=== PATIENT | female | born 1950 | race Caucasian/White ===

== ENCOUNTER → 2016-08-09 | Outpatient (CLI) | payer MEDICARE ==
--- NOTE | 2016-08-09 15:30 | CT ---
EXAMINATION TYPE: CT sinus wo con DATE OF EXAM: 08/09/2016 2:16 PM COMPARISON: NONE HISTORY: Sinusitis CT DLP: 588 mGycm Automated exposure control for dose reduction was used. Helical imaging through the sinuses FINDINGS: No air-fluid level to suggest acute sinusitis. The orbits show a symmetric appearance. Postop changes are present in the maxillary sinus medial davila. Is a mildly deviated nasal septum. No significant m ucosal disease. Temporomandibular joints are intact. There is no erosion of the scutum. No thickening of the tympanic membranes. Auditory ossicles show symmetric appearance. IMPRESSION: POSTOP CHANGE.
== END | disposition home or self-care (01) ==
LOC: RADCTMAIN 13:54
PROVIDERS: ATTEND Otolaryngology
DX: J01.90 Acute sinusitis, unspecified (principal); Z98.890 Other specified postprocedural states
CPT/HCPCS: 70486

== ENCOUNTER → 2017-03-15 | Outpatient (CLI) | payer MEDICARE ==
[2017-03-15 13:30] LABS: Appearance,Urine Clear (Clear); Bilirubin,Urine Negative (Negative); Glucose,Urine (UA) Negative (Negative); Ketones,Urine Negative (Negative); Leukocyte Esterase,Urine Negative (Negative); Nitrite,Urine Negative (Negative); PH, Urine 6.5 (5.0-8.0); Protein,Urine Negative (Negative); Specific Gravity,Urine 1.001 (1.001-1.035); UA Billing (MACRO vs. MICRO) CHEM; Urobilinogen,Urine <2.0 mg/dL (<2.0)
== END | disposition home or self-care (01) ==
LOC: LABWHC1 12:15
PROVIDERS: ATTEND Internal Medicine
DX: E78.00 Pure hypercholesterolemia, unspecified (principal); E03.9 Hypothyroidism, unspecified
CPT/HCPCS: 36415; 80051; 80061; 81003; 83735

== ENCOUNTER 2018-04-09 06:39 | Day surgery (SDC) | payer MEDICARE ==
[2018-04-04 16:35] VITALS: BMI 20.1
[~2018-04-09 06:39] MED LIST: CLINDAMYCIN 900 MG in DEXTROSE 5% IN WATER 50 ML IVPB ONE; SODIUM CHLORIDE 0.9% 1,000 ML IV SCH
[2018-04-09 07:17] VITALS: RESP 16; TEMP 98.1
[2018-04-09] MEDS ORDERED: SODIUM CHLORIDE 0.9% 500 ML IV ONE (07:18)
[2018-04-09] MEDS ORDERED: fentaNYL (PF) 50 MCG/ML 2 ML AMP ONE (07:49)
[2018-04-09] MEDS ORDERED: MIDAZOLAM 2 MG/2 ML VIAL ONE ×3 (07:49→09:51)
[2018-04-09] MEDS ORDERED: BENZOCAINE SPRAY 1 CAN MUCOUS MEM ONE (08:03)
[2018-04-09] MEDS ORDERED: fentaNYL (PF) 50 MCG/ML 2 ML AMP IV ONE (08:10)
[2018-04-09] MEDS ORDERED: MIDAZOLAM 2 MG/2 ML VIAL IV ONE ×2 (08:11→09:52)
[2018-04-09] MEDS ORDERED: DICYCLOMINE 10 MG CAP PO PRN (08:25)
[2018-04-09] MEDS ORDERED: DIAZEPAM 5 MG TAB PO PRN (08:25)
[2018-04-09] MEDS ORDERED: FAMOTIDINE 20 MG TAB PO PRN (08:25)
[2018-04-09] MEDS ORDERED: SODIUM CHLORIDE 0.9% 1,000 ML IV SCH (08:30)
[2018-04-09] MEDS ORDERED: ASPIRIN 81 MG PO SCH (09:00)
[2018-04-09] MEDS ORDERED: LEVOTHYROXINE 75 MCG TAB PO SCH (09:00)
[2018-04-09] MEDS ORDERED: NON-FORMULARY DRUG (Potassium Chloride [Klor-Con 10] 10 MEQ) PO SCH (09:00)
[2018-04-09] MEDS ORDERED: DOCUSATE 100 MG CAP PO SCH (09:00)
[2018-04-09] MEDS ORDERED: ATORVASTATIN 40 MG TAB PO SCH (09:00)
[2018-04-09] MEDS ORDERED: IV FLUID CONTINUATION 450 ML IV ONE (09:50)
--- NOTE | 2018-04-09 09:58 | ECHOT ---
TRANSESOPHAGEAL ECHOCARDIOGRAM INDICATION: Evaluation of left atrial appendage. PROCEDURE: After explaining the procedure to the patient, its risks and the complications, her blood pressure, heart rate, O2 saturation was monitored. The throat was sprayed with Cetacaine. She received 2 mg intravenous Versed, 50 mcg intravenous fentanyl. The probe was introduced into the esophagus without difficulty. Images were obtained. Following that, the probe was removed. There was no immediate complication. FINDINGS: The left atrial size is normal. Left atrial appendage is normal. Left ventricular size and systolic function are normal. The aortic valve, mitral valve, tricuspid valve are normal. Descending thoracic aorta appears to be normal. Contrast bubble study revealed no shunting across the interatrial septum. Doppler pulse obtained, revealed mild mitral and tricuspid as well as aortic regurgitation. There was no shunting by color Doppler study. CONCLUSION: 1. Normal left ventricular size and systolic function. 2. Normal left atrial appendage size and normal appearance left atrial appendage. 3. Normal appearance of the aortic and mitral valve. 4. Mild mitral, aortic and tricuspid regurgitation. 5. No shunting by color Doppler study or contrast bubble study. MMODL / IJN: [id number] /
--- NOTE | 2018-04-09 10:11 | P.PCN ---
Preoperative Diagnosis: Loop monitor implant Primary physicians: Ermias Romero Yarn Twister: Dr. Crandall Indication: Cryptogenic stroke pontine embolic stroke, history of palpitations deemed as panic attacks, no intracardiac mass or thrombus on JENNIFER Patient was brought to the EP lab in a fasting state. Written informed consent was obtained prior to the procedure. The left pectoral area was prepped and draped per protocol. Intravenous antibiotic was administered preoperatively. A subcutaneous Loop monitor was implanted successfully and the wound was closed per protocol. The device was programmed to detect significant sakina- arrhythmic and tachy-arrhythmic events, per protocol. Device and programming details: Detection of atrial fibrillation Patient underwent EP procedure under conscious sedation/moderate sedation, monitoring of the level of consciousness and physiologic parameters including but not limited to vital signs and oxygenation. Patient tolerated the procedure well without any acute complications. Start time: 957 Stop time: 1007 Disposition: same day
[2018-04-09 10:55] VITALS: BP 140/57; PULSE 82
== END 2018-04-09 11:06 | disposition home or self-care (01) ==
LOC: CATHCVL 06:39
PROVIDERS: ATTEND Internal Medicine Interventional Cardiology
DX: I69.354 Hemiplegia and hemiparesis following cerebral infarction affecting left non-dominant side (principal); I63.19 Cerebral infarction due to embolism of other precerebral artery; I48.91 Unspecified atrial fibrillation; E78.5 Hyperlipidemia, unspecified; I08.3 Combined rheumatic disorders of mitral, aortic and tricuspid valves; Z79.890 Hormone replacement therapy; Z79.899 Other long term (current) drug therapy; Z88.3 Allergy status to other anti-infective agents; Z79.82 Long term (current) use of aspirin; Z87.891 Personal history of nicotine dependence
CPT/HCPCS: 93312; 93320; 93325; 33282; C1764; J2250; J3010

== ENCOUNTER → 2019-04-01 | Outpatient (CLI) | payer MEDICARE ==
--- NOTE | 2019-04-01 14:55 | CT ---
EXAMINATION TYPE: CT abdomen pelvis wo con DATE OF EXAM: 04/01/2019 COMPARISON: 04/05/2011 HISTORY: 68-year-old female Left flank pain and recurrent UTIs. CT DLP: 484 mGycm. Automated exposure control for dose reduction was used. TECHNIQUE: Contiguous axial scanning of the abdomen and pelvis without IV contrast. Coronal and sagit kerwin reconstructions performed. FINDINGS: LUNG BASES: Trace pericardial thickening/fluid. Heart normal size. Strandy inferior lingular atelecta sis. No pleural effusion. Tiny hiatal hernia. LIVER/GB: Gallstones measuring up to 1.2 cm. Otherwise, noncontrast appearance shows no gross abnorma lity. 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 PANCREAS: No significant abnormality allowing for noncontrast technique. SPLEEN: No significant abnormality allowing for noncontrast technique. ADRENALS: No significant abnormality is seen. KIDNEYS: Punctate 2 mm calculus medial left kidney. No hydronephrosis on either side. BOWEL: Normal appendix. Scattered mild stool. Redundant sigmoid colon with diverticulosis. No elias lonic inflammatory change. OTHER: No mesenteric or retroperitoneal lymphadenopathy. PELVIS: Bladder is urine distended. Bulging laxity of the levator ani musculature at the base of the bladder projecting at or just below the pubococcygeal line. No abnormal fluid collection in the pelvi s or pelvic lymphadenopathy. Uterus surgically absent. Neither ovary clearly seen. BONES: Diffuse osteopenia. Degenerative changes of the hips. Trace grade 1 anterolisthesis L3-L4. IMPRESSION: 1. Punctate 2 mm left renal calculus. No hydronephrosis on either side. 2. Sigmoid diverticulosis without acute diverticulitis. 3. Cholelithiasis. 4. Tiny hiatal hernia.
== END | disposition home or self-care (01) ==
LOC: RADCTMAIN 12:14
PROVIDERS: ATTEND Urology
DX: N20.0 Calculus of kidney (principal); K57.30 Diverticulosis of large intestine without perforation or abscess without bleeding; K80.20 Calculus of gallbladder without cholecystitis without obstruction; K44.9 Diaphragmatic hernia without obstruction or gangrene; N39.0 Urinary tract infection, site not specified; Z88.1 Allergy status to other antibiotic agents
CPT/HCPCS: 74176

== ENCOUNTER 2020-05-13 10:04 | Day surgery (SDC) | payer MEDICARE ==
[2020-05-11 16:28] VITALS: BMI 23.4
[~2020-05-13 10:04] MED LIST changes: -CLINDAMYCIN 900 MG in DEXTROSE 5% IN WATER 50 ML IVPB ONE; +LACTATED RINGERS 1,000 ML IV SCH; +LIDOCAINE 1% INJ 10MG/ML (20 ML MDV) ONE; +ceFAZolin 1,000 MG in SODIUM CHLORIDE 0.9% IRRIGATIO 250 ML IRRIGATION ONE
[2020-05-13] MEDS ORDERED: SODIUM CHLORIDE 0.9% 500 ML 500 ML IV ONE (10:18)
[2020-05-13 10:39] LABS: Basophils # (A) 0.1 k/uL (0-0.2); Basophils % (A) 1 %; Eosinophils # (A) 0.1 k/uL (0-0.7); Eosinophils % (A) 3 %; HCT 40.6 % (34.0-46.0); HGB 13.5 gm/dL (11.4-16.0); Lymphocytes # (A) 1.9 k/uL (1.0-4.8); Lymphocytes % (A) 34 %; MCH 30.6 pg (25.0-35.0); MCHC 33.2 g/dL (31.0-37.0); MCV 92.1 fL (80.0-100.0); Mean Platelet Volume 7.9; Monocytes # (A) 0.3 k/uL (0-1.0); Monocytes % (A) 6 %; Neutrophils % (A) 55 %; Platelet Count 186 k/uL (150-450); RDW 12.5 % (11.5-15.5); WBC 5.5 k/uL (3.8-10.6)
[2020-05-13 10:51] LABS: Calcium 9.2 mg/dL (8.4-10.2); Potassium 3.4 mmol/L (3.5-5.1)
[2020-05-13] MEDS ORDERED: MIDAZOLAM 2 MG/2 ML VIAL ONE (10:54)
[2020-05-13] MEDS ORDERED: HYDROmorphone (PF) 1 MG/ML ONE (10:54)
[2020-05-13] MEDS ORDERED: PROPOFOL 10 MG/ML 20 ML VIAL IV ONE (10:54)
[2020-05-13] MEDS ORDERED: fentaNYL (PF) 50 MCG/ML 2 ML AMP ONE (10:54)
[2020-05-13] MEDS ORDERED: diphenhydrAMINE 50 MG/ML 1 ML VIAL ONE (10:54)
[2020-05-13] MEDS ORDERED: SODIUM CHLORIDE 0.9% 900 ML IV ONE (10:58)
[2020-05-13] MEDS ORDERED: IOPAMIDOL-250 50ML BTL IV ONE (11:13)
[2020-05-13] MEDS ORDERED: LIDOCAINE 1% INJ 10MG/ML (20 ML MDV) SQ ONE (11:57)
[2020-05-13] MEDS: LIDOCAINE 1% INJ 10MG/ML (20 ML MDV) SQ ONE ×2 (12:12→13:41)
[2020-05-13] MEDS ORDERED: ACETAMINOPHEN IV (For NPO) 1,000 MG in EMPTY BAG 1 BAG IVPB ONE (13:24)
[2020-05-13] MEDS ORDERED: ACETAMINOPHEN TAB 325 MG TAB PO PRN (13:24)
--- NOTE | 2020-05-13 13:32 | P.PRLE ---
RE: Edwardo Green Dear Ermias Edwardo Green underwent dual-chamber pacemaker implantation for intermittent bradycardia secondary to Mobitz 2 AV block. Loop monitor was explanted She will continue her cardiac medications as before and we will see her in the pacemaker clinic in about a week's time Thank you for entrusting me with the care of the patient Warm regards Sincerely Jorge Crandall
--- NOTE | 2020-05-13 13:44 | P.PCN ---
Preoperative Diagnosis: Procedure: Loop explant under sedation and local anesthesia. Diagnosis: Loop monitor at [facility] Patient was brought to the EP lab in a fasting state. Written informed consent was obtained prior to the procedure. The subcutaneous device was successfully explanted under local anesthesia. Preoperative antibiotics were administered. The wound was closed in layers and dressed per protocol. Result: Successful loop monitor explantation.
--- NOTE | 2020-05-13 14:02 | CE ---
CARDIAC ELECTROPHYSIOLOGY REPORT Edwardo Green is a 69-year-old female who has a history of a loop monitor implantation for history of dizziness, syncope and CVA. Intermittent Ohms to AV block with bradycardia were noted and she is brought in for dual-chamber pacemaker implantation. She is not on any AV jeffrey blocking drugs. Patient was brought to the EP lab in a fasting state. Written informed consent obtained prior to the procedure. The left shoulder area was prepped and draped as per protocol; 1% lidocaine was used for local anesthesia. A 4 cm incision was made parallel to the deltopectoral groove, about 1.5 cm medial to it. The incision was carried down to the level of the pectoralis muscle. A subfascial pocket was made, hemostasis was assured. The left axillary vein was accessed at two separate points under fluoroscopy and via appropriately-sized introducer sheaths. Two leads were positioned in the right heart. The atrial lead, initially a tined lead was positioned in the right atrium but thresholds were high and therefore this was replaced with a screw-in lead. The lead was screwed in the right atrial appendage. This was a [employer] model #5076, 45 cm in length and serial #[id number]. P waves 1.5 mV, pacing threshold 1.25 V at 0.4 milliseconds. Pacing impedance 798 ohms and 10 V test negative. The RV lead was a passive lead, positioned in the right ventricle in the apex. The R- waves were 3-4 mV, pacing impedance 1273 ohms and pacing threshold 0.5 V at 0.4 milliseconds, 10 V test negative. Both leads secured to the underlying pectoralis fascia using two nonabsorbable sutures. The pocket was irrigated with antibiotic solution. Leads were connected to the generator (Groov[employer] Yakelin ATR MRI, model #W3DR01, serial #[id number]. The leads and the generator were then placed a subfascial pocket. The wound was closed in three layers and dressed per protocol. RESULT: Successful dual-chamber pacemaker implantation for bradycardia secondary to intermittent Mobitz 2 AV block with symptoms. PLAN: DDD pacing with MVP turned on to avoid RV pacing. MMODL / IJN: [id number] /
[2020-05-13] MEDS ORDERED: POTASSIUM CHLORIDE ER 20 MEQ TAB.ER PO STA (14:23)
--- NOTE | 2020-05-13 15:18 | XR ---
EXAMINATION TYPE: XR chest 1V portable DATE OF EXAM: 05/13/2020 COMPARISON: NONE HISTORY: Lead placement check TECHNIQUE: Single frontal view of the chest is obtained. FINDINGS: Generators present in the left pectoral region, there are leads in the right atrium and ve ntricle. No evident pneumothorax or pleural effusion. Cardiac mediastinal silhouette, pulmonary vascu larity and stacia are within normal limits. There are overlying cardiac leads. IMPRESSION: No evident complication status post pacemaker placement.
[2020-05-13] MEDS ORDERED: TEMAZEPAM 15 MG CAP PO PRN (19:22)
[2020-05-14] MEDS: HYDROcodone/APAP 5-325MG 1 EACH TAB PO PRN ×2 (01:41→08:18)
[2020-05-14 04:48] VITALS: RESP 16
[2020-05-14] MEDS ORDERED: LEVOTHYROXINE 75 MCG TAB PO SCH (06:30)
[2020-05-14 08:10] VITALS: TEMP 98.1
[2020-05-14] MEDS ORDERED: SODIUM SALICYLATE PO SCH (09:00)
[2020-05-14] MEDS ORDERED: METHENAMINE PO SCH (09:00)
[2020-05-14] MEDS ORDERED: ATORVASTATIN 80 MG TAB PO SCH (09:00)
[2020-05-14] MEDS ORDERED: ASPIRIN 81 MG PO SCH (09:00)
[2020-05-14] MEDS ORDERED: Potassium Replacement Protocol 1 EACH MISC MISCELLANE PRN (09:19)
[2020-05-14] MEDS ORDERED: DICYCLOMINE 10 MG CAP PO PRN (09:57)
[2020-05-14] MEDS: POTASSIUM CHLORIDE ER 20 MEQ TAB.ER PO SCH ×2 (10:05→11:49)
[2020-05-14 11:48] VITALS: BP 158/74; PULSE 104
--- NOTE | 2020-05-14 11:55 | P.PN ---
Subjective Progress Note Date: 05/14/20 Discharge note This is a pleasant 69-year-old female who has a history of CVA with dense left-sided paresis, symptoms of dizziness, syncope,,who had a loop recorder implanted, which revealed intermittent bradycardia secondary to Mobitz 2 AV block. Her loop recorder was explanted and patient underwent implantation of a permanent pacemaker yesterday by Dr. Crandall. Chest x-ray from this morning did not reveal any evidence of complications post pacemaker implantation.the patient was seen and examined this morning, complaining of some mild nausea. Blood pressure 116/68 with a heart rate in the 80s, 95% on room air.White blood cell count 5.5, hemoglobin 13.5, platelet count 186. Sodium 139, potassium 3.4, BUN 15, creatinine 0.8. Potassium has been replaced and the patient has received her IV antibiotics. Once her device is interrogated, if functioning appropriately, the patient may be discharged home today, she will follow-up in the device clinic in one week, and with Dr. Crandall subsequent to that. Objective - Vital Signs Vital signs: Vital Signs Temp 98.1 F 05/14/20 08:00 Pulse 87 05/14/20 08:00 Resp 16 05/14/20 08:00 BP 117/68 05/14/20 08:00 Pulse Ox 95 05/14/20 08:00 Intake & Output 05/13/20 05/14/20 05/14/20 18:59 06:59 18:59 Intake Total 1364 120 Balance 1364 120 Weight 57.2 kg 56.7 kg Intake: IV 920 Oral 444 120 Other: # Voids 1 1 1 - Exam PHYSICAL EXAMINATION: GENERAL:69-year-old female in no acute distress at the time of my examination HEENT: Head is atraumatic, normocephalic. Pupils equal, round. Sclera anicteric. Conjunctiva are clear. Mucous membranes of the mouth are moist. Neck is supple. There is no elevated jugular venous pressure.no carotid bruit is heard. HEART EXAMINATION: [Heart S1, S2 normal. No murmur or gallop heard.] CHEST EXAMINATION:[ Lungs are clear to auscultation and precussion. No chest wall tenderness is noted on palpation or with deep breathing.site of pacemaker implantation, dressing is dry and intact. ABDOMEN: [ Soft, nontender. Bowel sounds are heard. No organomegaly noted]. EXTREMITIES:[ 2+ peripheral pulses with no evidence of peripheral edema and no calf tenderness noted].patient does have a left-sided paresis NEUROLOGIC [patient is awake, alert and oriented 3.] . - Labs CBC & Chem 7: 05/13/20 10:30 05/13/20 10:30 Assessment and Plan Plan: Assessment and plan #1 status post implantation of a permanent pacemaker for Mobitz type II block. patient also underwent explant of a loop recorder #2 history of CVA with left-sided paresis Plan Patient will be discharged home today. Follow-up appointment in the device clinic in one week, with Dr. Crandall in 4 weeks. Discharge occasions include aspirin 81 mg daily, Lipitor 80 mg daily, Synthroid 75 g daily. DNP note has been reviewed, I agree with a documented findings and plan of care. Patient was seen and examined.
== END 2020-05-14 12:48 | disposition home or self-care (01) ==
LOC: CATHEP 10:04 → 3SCARD 13:48 → CATHEP 05-14 12:48
PROVIDERS: ATTEND Internal Medicine Clinical Cardiac Electrophysiology
DX: I44.1 Atrioventricular block, second degree (principal); I69.354 Hemiplegia and hemiparesis following cerebral infarction affecting left non-dominant side; E07.9 Disorder of thyroid, unspecified; E78.5 Hyperlipidemia, unspecified; Z88.1 Allergy status to other antibiotic agents; Z79.890 Hormone replacement therapy; Z79.82 Long term (current) use of aspirin; Z79.899 Other long term (current) drug therapy; Z90.710 Acquired absence of both cervix and uterus; Z72.0 Tobacco use
CPT/HCPCS: 33208; 33286; 80048; 85025; 71045; C1769; C1892; C1898 ×2; C1785; J2250; J1200; J0690 ×3; J2001; J3010; J1170; J0131; J2704; Q9966

== ENCOUNTER → 2021-01-25 | Outpatient (CLI) | payer MEDICARE ==
--- NOTE | 2021-01-25 16:58 | CT ---
EXAMINATION TYPE: CT angio head neck DATE OF EXAM: 01/25/2021 HISTORY: Follow up for stroke x3 years ago. COMPARISON: None CT DLP: 1229.1 mGycm. Automated Exposure Control for Dose Reduction was Utilized. TECHNIQUE: CTA scan of the neck and brain is performed with IV Contrast, patient injected with 65ml mL of Isovue 370, axial images are obtained, coronal and sagittal reformatted images are reviewed. Th ree-D reconstructed images are created on an independent workstation and reviewed. FINDINGS: Periventricular white matter shows patchy low attenuation. There is cortical atrophy presen t. Focal low attenuation is noted within the tracey likely representing some encephalomalacia. There ar e cerebral vascular calcifications. There is no evident hemorrhage or hydrocephalus. Periventricular white matter on the right extending into the region of the posterior horn of the internal capsule the re is focal low attenuation also likely representing encephalomalacia. Carotid/Vascular Structures: There is no stenosis of the proximal internal carotid arteries by NASCET criteria. The vertebral arteries are patent, left vertebral artery is dominant, fenestration noted i n the right vertebral artery. Internal and external carotid arteries are patent, common carotid arter ies are patent. The transverse aorta is patent, there are 3 super aortic branch vessels present, left and right subclavian arteries, innominate artery are patent. Anterior posterior circulation patent within the brain. There is no evident aneurysm, stenosis, disse ction, or embolus. Cerebral vascular calcifications are present. Other: Lung apices show emphysematous change. There is a generator in the left pectoral region. Degen erative disc changes are present in the visualized spine. IMPRESSION: Evidence of chronic small vessel ischemia. Emphysema and additional findings above.
== END | disposition home or self-care (01) ==
LOC: RADCTMAIN 13:59
PROVIDERS: ATTEND Psychiatry & Neurology Neurology
DX: I67.82 Cerebral ischemia (principal)
CPT/HCPCS: 82565; 84520; 70496; 70498; 36415; Q9967

== ENCOUNTER 2022-12-20 13:49 | Observation (INO) | payer MEDICARE ==
[2022-12-20] MEDS ORDERED: SODIUM CHLORIDE 0.9% 1,000 ML IV ONE ×3 (14:10→18:09)
[2022-12-20 15:20] LABS: Basophils % (A) 1 %; Eosinophils # (A) 0.1 k/uL (0-0.7); Eosinophils % (A) 1 %; HCT 39.2 % (34.0-46.0); HGB 12.7 gm/dL (11.4-16.0); Lymphocytes % (A) 15 %; MCH 28.6 pg (25.0-35.0); MCHC 32.3 g/dL (31.0-37.0); MCV 88.6 fL (80.0-100.0); Mean Platelet Volume 7.8; Monocytes # (A) 0.3 k/uL (0-1.0); Monocytes % (A) 5 %; Neutrophils % (A) 77 %; Platelet Count 198 k/uL (150-450); RBC 4.43 m/uL (3.80-5.40); RDW 13.2 % (11.5-15.5); WBC 6.5 k/uL (3.8-10.6)
[2022-12-20 15:31] LABS: ALT 22 U/L (4-34); AST 37 U/L (14-36); African American GFR (CKD) >90 (>60 ml/min/1.73 sqM); Albumin 3.6 g/dL (3.5-5.0); Anion Gap 7 mmol/L; Blood Urea Nitrogen 16 mg/dL (7-17); Calcium 8.7 mg/dL (8.4-10.2); Carbon Dioxide 28 mmol/L (22-30); Chloride 110 mmol/L (98-107); Glucose 114 mg/dL (74-99); Non-African American GFR(CKD) 85 (>60 ml/min/1.73 sqM); Potassium 3.6 mmol/L (3.5-5.1); Sodium 145 mmol/L (137-145); Total Bilirubin 0.3 mg/dL (0.2-1.3); Total Protein 6.5 g/dL (6.3-8.2)
[2022-12-20 15:53] LABS: Alkaline Phosphatase 80 U/L (38-126)
[2022-12-20 16:32] LABS: Appearance,Urine Clear (Clear); Bilirubin,Urine Negative (Negative); Blood,Urine Negative (Negative); Color,Urine Light Yellow; Glucose,Urine (UA) Negative (Negative); Ketones,Urine Negative (Negative); Leukocyte Esterase,Urine Negative (Negative); Mucus,Urine Rare /hpf; Nitrite,Urine Negative (Negative); Protein,Urine 1+ (Negative); RBC,Urine 1 /hpf (0-5); Specific Gravity,Urine 1.009 (1.001-1.035); Urobilinogen,Urine <2.0 mg/dL (<2.0); WBC,Urine 1 /hpf (0-5)
--- NOTE | 2022-12-20 16:33 | XR ---
EXAMINATION TYPE: XR chest 2V DATE OF EXAM: 12/20/2022 4:27 PM COMPARISON: 09/13/2019 TECHNIQUE: XR chest 2V Frontal and lateral views of the chest. CLINICAL INDICATION:Female, 72 years old with history of altered mental status; FINDINGS: Lungs/Pleura: There is no evidence of pleural effusion, focal consolidation, or pneumothorax. Pulmonary vascularity: Unremarkable. Heart/mediastinum: Cardiomediastinal silhouette is unremarkable. Two lead cardiac conduction device o verlying the left hemithorax with lead tips projecting over the right ventricle and right atrium. Musculoskeletal: No acute osseous pathology. Other findings: None IMPRESSION: No acute cardiopulmonary disease/process.
[2022-12-20 16:42] LABS: Amphetamine Screen,Urine Not Detected (NotDetected); Barbiturate Screen,Urine Not Detected (NotDetected); Benzodiazepines Screen,Urine Detected (NotDetected); Cocaine Screen,Urine Not Detected (NotDetected); Methadone Screen, Urine Not Detected (NotDetected); Opiate Screen,Urine Not Detected (NotDetected); Oxycodone Screen, Urine Not Detected (NotDetected); Phencyclidine Screen,Urine Not Detected (NotDetected); Tricyclic Antidepressant,Urine Not Detected (NotDetected); Urn Cannabinoid Scrn Not Detected (NotDetected)
--- NOTE | 2022-12-20 18:09 | ED ---
General Adult HPI - General Chief complaint: Altered Mental Status Stated complaint: poss UTI Time Seen by Provider: 12/20/22 14:20 Source: patient, family, EMS, RN notes reviewed, old records reviewed Mode of arrival: EMS Limitations: altered mental status - History of Present Illness Initial comments: This is a 72-year-old female who presents emergency Department with family they state that she's been altered lately and has been intermittent. Patient's family states that she's much worse in the morning but still throughout the day she has her period which she can't remember things and is confused. Currently she is only slightly confused. Family states she's been treated recently for urinary tract infection but they believe that she's been on antibiotics for quite a while. Patient denies any pain patient denies headache patient denies numbness or weakness. Patient denies chest pain difficulty breathing shortest breath per patient denies any palpitations. Patient denies any abdominal pain patient denies nausea vomiting diarrhea. - Related Data Home Medications Medication Instructions Recorded Confirmed Dicyclomine [Bentyl] 10 mg PO QID PRN 04/04/18 12/20/22 diazePAM [Valium] 5 mg PO Q8H PRN 04/04/18 12/20/22 Rosuvastatin Calcium [Crestor] 40 mg PO DAILY 05/11/20 12/20/22 Eszopiclone [Lunesta] 2 mg PO HS 12/20/22 12/20/22 Famotidine [Pepcid] 20 mg PO BID PRN 12/20/22 12/20/22 Levothyroxine Sodium [Synthroid] 50 mcg PO DAILY 12/20/22 12/20/22 Metoprolol Succinate (ER) [Toprol 25 mg PO DAILY 12/20/22 12/20/22 Xl] Allergies Allergy/AdvReac Type Severity Reaction Status Date / Time moxifloxacin [From Avelox] Allergy Anaphylaxis Verified 12/20/22 14:52 Review of Systems ROS Statement: Those systems with pertinent positive or pertinent negative responses have been documented in the HPI. ROS Other: All systems not noted in ROS Statement are negative. Past Medical History Past Medical History: Cancer, CVA/TIA, Hearing Disorder / Deafness, Musculoskeletal Disorder, Thyroid Disorder Additional Past Medical History / Comment(s): Loop Monitor implant shows heart slowing down, fatigues easily. 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 IBS, steroids Feb 2018. Osteoporosis. Skin cancer History of Any Multi-Drug Resistant Organisms: None Reported Past Surgical History: Hysterectomy, Orthopedic Surgery Additional Past Surgical History / Comment(s): Sinus surg x2, knee procedure, Loop Monitor Implant, Colonoscopy, EGD Past Anesthesia/Blood Transfusion Reactions: Motion Sickness Additional Past Anesthesia/Blood Transfusion Reaction / Comment(s): no hx blood transfusion, rare motion sickness Past Psychological History: Anxiety Smoking Status: Former smoker Past Alcohol Use History: None Reported Past Drug Use History: None Reported - Past Family History Mother Family Medical History: No Reported History General Exam - General Exam Comments Initial Comments: GENERAL: Patient is well-developed and well-nourished. Patient is nontoxic and well- hydrated and is in no acute distress. ENT: Neck is soft and supple. No significant lymphadenopathy is noted. Oropharynx is clear. Moist mucous membranes. Neck has full range of motion without eliciting any pain. EYES: The sclera were anicteric and conjunctiva were pink and moist. Extraocular movements were intact and pupils were equal round and reactive to light. Eyelids were unremarkable. PULMONARY: Unlabored respirations. Good breath sounds bilaterally. No audible rales rhonchi or wheezing was noted. CARDIOVASCULAR: There is a regular rate and rhythm without any murmurs gallops or rubs. ABDOMEN: Soft and nontender with normal bowel sounds. No palpable organomegaly was noted. There is no palpable pulsatile mass. SKIN: Skin is clear with no lesions or rashes and otherwise unremarkable. NEUROLOGIC: Patient is alert and oriented 2. Cranial nerves II through XII are grossly intact. Patient has paralysis on the left side from previous stroke MUSCULOSKELETAL: Normal extremities with adequate strength and full range of motion. No lower extremity swelling or edema. No calf tenderness. LYMPHATICS: No significant lymphadenopathy is noted PSYCHIATRIC: Normal psychiatric evaluation. Limitations: altered mental status Course Vital Signs 12/20/22 14:02 Temperature 98.2 F Pulse Rate 70 Respiratory 18 Rate Blood Pressure 181/72 O2 Sat by Pulse 95 Oximetry Medical Decision Making - Medical Decision Making EKG was interpreted by myself shows normal sinus rhythm at 73 bpm MT interval is 174 QRS is 76 QT interval 414 QTC is 456. Patient's EKG shows no ST segment elevation or depression. Was pt. sent in by a medical professional or institution (BRISA Rabago, [employer]OL C[employer]ER, urgent care, hospital, or group home...) When possible be specific @ -[No] Did you speak to anyone other than the patient for history (EMS, parent, family, police, friend...)? What history was obtained from this source @ -Patient's gave a lot of past history since the patient was altered Did you review nursing and triage notes (agree or disagree)? Why? @ -[I reviewed and agree with nursing and triage notes] Were old charts reviewed (outside hosp., previous admission, EMS record, old EKG, old radiological studies, urgent care reports/EKG's, group home records)? Report findings @ -I reviewed prior laboratories in prior charts on this patient Differential Diagnosis (chest pain, altered mental status, abdominal pain women, abdominal pain men, vaginal bleeding, weakness, fever, dyspnea, syncope, headache, dizziness, GI bleed, back pain, seizure, CVA, palpatations, mental health, musculoskeletal)? @ -Differential Altered Mental Status: Hypoglycemia, DKA, hypercapnia, ETOH, overdose, CO poisoning, trauma, myxedema coma, HTN encephalopathy, infection, encephalitis, psychosis, intercranial hemorrhage, hepatic encephalopathy, meningitis, CVA, this is not meant to be an all-inclusive list EKG interpreted by me (3pts min.). @ -[As above] X-rays interpreted by me (1pt min.). @ -Chest x-ray showed no acute abnormality CT interpreted by me (1pt min.). @ -[None done] U/S interpreted by me (1pt. min.). @ -[None done] What testing was considered but not performed or refused? (CT, X-rays, U/S, labs)? Why? @ -I did consider doing a CAT scan the patient had a full workup at [facility] for stroke within the last 2 weeks What meds were considered but not given or refused? Why? @ -[None] Did you discuss the management of the patient with other professionals (professionals i.e. BRISA Rabago, WOOL C[employer]ER, lab, RT, psych nurse, director social, forest biometrics professor, teacher, family preservation officer, case briefer)? Give summary @ -I spoke with Dr. Felipe agreed to admit the patient Was smoking cessation discussed for >3mins.? @ -[No] Was critical care preformed (if so, how long)? @ -[No] Were there social determinants of health that impacted care today? How? (Homelessness, low income, unemployed, alcoholism, drug addiction, transportation, low edu. Level, literacy, decrease access to med. care, mcc, rehab)? @ -[No] Was there de-escalation of care discussed even if they declined (Discuss DNR or withdrawal of care, Hospice)? DNR status @ -[No] What co-morbidities impacted this encounter? (DM, HTN, Smoking, COPD, CAD, Can cer, CVA, ARF, Chemo, Hep., AIDS, mental health diagnosis, sleep apnea, morbid obesity)? @ -[None] Was patient admitted / discharged? Hospital course, mention meds given and route, prescriptions, significant lab abnormalities, going to OR and other pertinent info. @ -Patient was given fluids in the emergency department and I will begin to r eevaluate once labs were all done and urine was back in patient's was much closer to her baseline according to family. Patient seemed much more alert to me. Patient does take Valium on a daily basis I did suggest might be taking too much or too often family deny that but I spoke with Dr. Felipe he agrees that we'll keep her off that and hydrated up why she is in the hospital Undiagnosed new problem with uncertain prognosis? @ -[No] Drug Therapy requiring intensive monitoring for toxicity (Heparin, Nitro, Insulin, Cardizem)? @ -[No] Were any procedures done? @ -[No] Diagnosis/symptom? @ -Altered mental status Acute, or Chronic, or Acute on Chronic? @ -Acute Uncomplicated (without systemic symptoms) or Complicated (systemic symptoms)? @ -Complicated Side effects of treatment? @ -[No] Exacerbation, Progression, or Severe Exacerbation? @ -[No] Poses a threat to life or bodily function? How? (Chest pain, [place], [place], pneumonia, PE, COPD, DKA, ARF, appy, cholecystitis, CVA, Diverticulitis, Homicidal, Suicidal, threat to staff... and all critical care pts) @ -Yes this could be the precursor to a stroke and had significant morbidity - Lab Data Result diagrams: 12/20/22 15:06 12/20/22 15:06 Lab Results 12/20/22 12/20/22 12/20/22 Range/Units 15:06 15:06 15:06 WBC 6.5 (3.8-10.6) k/uL RBC 4.43 (3.80-5.40) m/uL Hgb 12.7 (11.4-16.0) gm/dL Hct 39.2 (34.0-46.0) % MCV 88.6 (80.0-100.0) fL MCH 28.6 (25.0-35.0) pg MCHC 32.3 (31.0-37.0) g/dL RDW 13.2 (11.5-15.5) % Plt Count 198 (150-450) k/uL MPV 7.8 Neutrophils % 77 % Lymphocytes % 15 % Monocytes % 5 % Eosinophils % 1 % Basophils % 1 % Neutrophils # 5.0 (1.3-7.7) k/uL Lymphocytes # 1.0 (1.0-4.8) k/uL Monocytes # 0.3 (0-1.0) k/uL Eosinophils # 0.1 (0-0.7) k/uL Basophils # 0.0 (0-0.2) k/uL Sodium 145 (137-145) mmol/L Potassium 3.6 (3.5-5.1) mmol/L Chloride 110 H (98-107) mmol/L Carbon Dioxide 28 (22-30) mmol/L Anion Gap 7 mmol/L BUN 16 (7-17) mg/dL Creatinine 0.72 (0.52-1.04) mg/dL Est GFR (CKD-EPI)AfAm >90 (>60 ml/min/1.73 sqM) Est GFR (CKD-EPI)NonAf 85 (>60 ml/min/1.73 sqM) Glucose 114 H (74-99) mg/dL Calcium 8.7 (8.4-10.2) mg/dL Total Bilirubin 0.3 (0.2-1.3) mg/dL AST 37 H (14-36) U/L ALT 22 (4-34) U/L Alkaline Phosphatase 80 (38-126) U/L Troponin I (0.000-0.034) ng/mL Total Protein 6.5 (6.3-8.2) g/dL Albumin 3.6 (3.5-5.0) g/dL Urine Color Light Yellow Urine Appearance Clear (Clear) Urine pH 7.0 (5.0-8.0) Ur Specific [place] 1.009 (1.001-1.035) Urine Protein 1+ H (Negative) Urine Glucose (UA) Negative (Negative) Urine Ketones Negative (Negative) Urine Blood Negative (Negative) Urine Nitrite Negative (Negative) Urine Bilirubin Negative (Negative) Urine Urobilinogen <2.0 (<2.0) mg/dL Ur Leukocyte Esterase Negative (Negative) Urine RBC 1 (0-5) /hpf Urine WBC 1 (0-5) /hpf Urine Mucus Rare H (None) /hpf Urine Opiates Screen Not Detected (NotDetected) Ur Oxycodone Screen Not Detected (NotDetected) Urine Methadone Screen Not Detected (NotDetected) Ur Propoxyphene Screen Not Detected (NotDetected) Ur Barbiturates Screen Not Detected (NotDetected) U Tricyclic Antidepress Not Detected (NotDetected) Ur Phencyclidine Scrn Not Detected (NotDetected) Ur Amphetamines Screen Not Detected (NotDetected) U Methamphetamines Scrn Not Detected (NotDetected) U Benzodiazepines Scrn Detected H (NotDetected) Urine Cocaine Screen Not Detected (NotDetected) U Marijuana (THC) Screen Not Detected (NotDetected) 12/20/22 Range/Units 15:06 WBC (3.8-10.6) k/uL RBC (3.80-5.40) m/uL Hgb (11.4-16.0) gm/dL Hct (34.0-46.0) % MCV (80.0-100.0) fL MCH (25.0-35.0) pg MCHC (31.0-37.0) g/dL RDW (11.5-15.5) % Plt Count (150-450) k/uL MPV Neutrophils % % Lymphocytes % % Monocytes % % Eosinophils % % Basophils % % Neutrophils # (1.3-7.7) k/uL Lymphocytes # (1.0-4.8) k/uL Monocytes # (0-1.0) k/uL Eosinophils # (0-0.7) k/uL Basophils # (0-0.2) k/uL Sodium (137-145) mmol/L Potassium (3.5-5.1) mmol/L Chloride (98-107) mmol/L Carbon Dioxide (22-30) mmol/L Anion Gap mmol/L BUN (7-17) mg/dL Creatinine (0.52-1.04) mg/dL Est GFR (CKD-EPI)AfAm (>60 ml/min/1.73 sqM) Est GFR (CKD-EPI)NonAf (>60 ml/min/1.73 sqM) Glucose (74-99) mg/dL Calcium (8.4-10.2) mg/dL Total Bilirubin (0.2-1.3) mg/dL AST (14-36) U/L ALT (4-34) U/L Alkaline Phosphatase (38-126) U/L Troponin I <0.012 (0.000-0.034) ng/mL Total Protein (6.3-8.2) g/dL Albumin (3.5-5.0) g/dL Urine Color Urine Appearance (Clear) Urine pH (5.0-8.0) Ur Specific [place] (1.001-1.035) Urine Protein (Negative) Urine Glucose (UA) (Negative) Urine Ketones (Negative) Urine Blood (Negative) Urine Nitrite (Negative) Urine Bilirubin (Negative) Urine Urobilinogen (<2.0) mg/dL Ur Leukocyte Esterase (Negative) Urine RBC (0-5) /hpf Urine WBC (0-5) /hpf Urine Mucus (None) /hpf Urine Opiates Screen (NotDetected) Ur Oxycodone Screen (NotDetected) Urine Methadone Screen (NotDetected) Ur Propoxyphene Screen (NotDetected) Ur Barbiturates Screen (NotDetected) U Tricyclic Antidepress (NotDetected) Ur Phencyclidine Scrn (NotDetected) Ur Amphetamines Screen (NotDetected) U Methamphetamines Scrn (NotDetected) U Benzodiazepines Scrn (NotDetected) Urine Cocaine Screen (NotDetected) U Marijuana (THC) Screen (NotDetected) Disposition Clinical Impression: Altered mental status Disposition: ADMITTED IP TO THIS [facility] Referrals: Thony Choi MD [Primary Care Provider] - 1-2 days Time of Disposition: 18:09
[2022-12-21] MEDS ORDERED: diazePAM 5 MG TAB PO PRN (02:12)
[2022-12-21] MEDS ORDERED: DICYCLOMINE 10 MG CAP PO PRN (02:12)
[2022-12-21] MEDS: LEVOTHYROXINE 50 MCG TAB PO SCH (06:39)
[2022-12-21] MEDS: ATORVASTATIN 80 MG TAB PO SCH (08:17)
[2022-12-21] MEDS: METOPROLOL SUCCINATE (ER) 25 MG TAB.ER.24H PO SCH (08:17)
[2022-12-21] MEDS: FAMOTIDINE 20 MG TAB PO PRN ×2 (10:16→20:08)
[2022-12-21] MEDS: ASPIRIN 81 MG PO SCH (13:46)
--- NOTE | 2022-12-21 13:53 | P.CNNES ---
History of Present Illness Consult date: 12/21/22 Requesting physician: Judah Gagnon Reason for Consult: Altered mental status History of Present Illness: Patient is a 72-year-old right-handed female with history of hypertension, previous CVA, with residual left hemiplegia, came to the hospital by ambulance yesterday at 1:49 PM for possible memory loss. Patient states that she suffered from a stroke in November 2017 which affected her left side of the body. Her left arm is completely spastic and plegic, and her left leg is also weak but she can function and gets around with her AFO and a cane. Patient states that about 3 weeks ago she went to a cabin in [place] where she stayed for 3 days. Patient says that when she got home, she did not remember what she did, which is restaurants he went to, what she ate and could not remember how the bedroom looked like. She asked her who told her about it but she still could not bring that back up. After she was home for 3 days, she had an episode in which her daughter tried to woke her up and she was unresponsive. When she woke up, had no recollection of memory at that time. She did not know where she was at, who her was, and she thought that he was her son. She was taken to the [facility] from where she was transferred to [facility]. She was diagnosed with UTI. And discharged on oral antibiotics. Patient states that yesterday similar event happened. Her tried to wake her up at 9:30 and she would not wake up and was unresponsive. When she woke up, she thought it was middle of the night, did not know why he was trying to wake her up. She wanted to go to the bathroom, but she could not walk and she was slurring more than usual. She was weaker slightly more on the left side more than baseline. Patient apparently lost control of bowels while she was going to the bathroom. No seizure-like activity noticed. Patient says that she has been walking more slow, speech slurred and he is tired since this happened. She also suffered from Covid on 10/14/2022. Patient says that she does drool and slurred sometimes but he was a bit more than baseline. As per EMS flow sheet, when EMS arrived, they were met by patient's , who mentioned that patient recently had treatment for UTI. She had completed her antibiotics 2 days ago. Patient has history of CVA with left-sided deficits. Today patient was just not feeling right, increased weakness, nausea, loss of bowel control. Patient was awake oriented to self and place. EKG performed, Zofran given for nausea with improvement. Blood glucose 126 mg/dL vital signs at the scene was blood pressure 190/100, pulse rate 90, respirations 18, saturation 98%. Blood test shows normal CBC, CMP with AST mildly elevated 37. UA negative, urine drug screen positive for benzodiazepine. EKG showed normal sinus rhythm. Chest x-ray showed no acute cardio pulmonary process. Patient had a CTA of head and neck performed previously 01/25/2021, which showed evidence of chronic small vessel ischemia. No evidence of aneurysm, stenosis, dissection or embolus. Evidence of old ischemia in the right external capsule and right periventricular white matter. I personally reviewed CTA head. Patient's home medications include Valium 5 mg every 8 hours when necessary, Bentyl, Crestor 40 mg, metoprolol 25 mg, levothyroxine, Pepcid 20 mg twice a day when necessary, Lunesta 2 mg at bedtime. Patient says that she does take aspirin 81 mg daily although not listed in her home medication list. She has history of smoking tobacco half pack per day for 10 years, quit 35 years ago. Denies any use of alcohol or marijuana. Denies any hypertension or diabetes. 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 Patient follows up with Dr. Hernandez for Botox injection of her left arm spasticity. Also recently admitted for acute diverticulitis, does not remember details. Review of Systems Cataract surgery right eye, has some damage from surgery with both eyes from cataract surgery. Denies glaucoma. Had headache last night. Constitutional: Denies chills, Denies fever Eyes: bilateral blurred vision, bilateral decreased vision, denies diplopia, denies pain Ears: bilateral: decreased hearing (Since covid), deny: ear discharge Ears, nose, mouth and throat: Reports headache, Denies sore throat Cardiovascular: Denies chest pain, Denies shortness of breath Respiratory: Denies cough, Denies excessive sputum Gastrointestinal: Reports diarrhea, Reports nausea, Denies abdominal pain, Denies vomiting Genitourinary: Reports hematuria, Denies dysuria Musculoskeletal: Reports low back pain, Denies myalgias, Denies neck pain Integumentary: Denies pruritus, Denies rash Neurological: Reports as per HPI Psychiatric: Reports anxiety, Denies depression Endocrine: Reports fatigue, Reports weight change Past Medical History Past Medical History: Cancer, CVA/TIA, Hearing Disorder / Deafness, Musculoskeletal Disorder, Thyroid Disorder Additional Past Medical History / Comment(s): fatigues easily. 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 IBS, steroids Feb 2018. Osteoporosis. Skin cancer History of Any Multi-Drug Resistant Organisms: None Reported Past Surgical History: Hysterectomy, Orthopedic Surgery, Pacemaker Additional Past Surgical History / Comment(s): Sinus surg x2, knee procedure, Colonoscopy, EGD Past Anesthesia/Blood Transfusion Reactions: Motion Sickness Additional Past Anesthesia/Blood Transfusion Reaction / Comment(s): no hx blood transfusion, rare motion sickness Type of Cardiac Device: Permanent Pacemaker Device Placement Date:: 2019 Past Psychological History: Anxiety Smoking Status: Former smoker Past Alcohol Use History: None Reported Additional Past Alcohol Use History / Comment(s): quit smoking , smoked approx 15yrs-1ppd Past Drug Use History: None Reported - Past Family History Mother Family Medical History: No Reported History Medications and Allergies Home Medications Medication Instructions Recorded Confirmed Type Dicyclomine [Bentyl] 10 mg PO QID PRN 04/04/18 12/20/22 History diazePAM [Valium] 5 mg PO Q8H PRN 04/04/18 12/20/22 History Rosuvastatin Calcium [Crestor] 40 mg PO DAILY 05/11/20 12/20/22 History Eszopiclone [Lunesta] 2 mg PO HS 12/20/22 12/20/22 History Famotidine [Pepcid] 20 mg PO BID PRN 12/20/22 12/20/22 History Levothyroxine Sodium [Synthroid] 50 mcg PO DAILY 12/20/22 12/20/22 History Metoprolol Succinate (ER) [Toprol 25 mg PO DAILY 12/20/22 12/20/22 History Xl] Allergies Allergy/AdvReac Type Severity Reaction Status Date / Time moxifloxacin [From Avelox] Allergy Anaphylaxis Verified 12/20/22 14:52 Physical Examination - Vital Signs Vital Signs: Vital Signs Temp Pulse Pulse Resp BP BP BP 12/21/22 07:00 97.8 F 116 H 16 141/93 12/21/22 02:00 81 147/85 12/21/22 01:21 97.9 F 98 16 172/91 12/21/22 00:59 87 18 162/92 12/20/22 19:46 89 18 140/89 12/20/22 14:02 98.2 F 70 18 181/72 Pulse Ox 12/21/22 07:00 96 12/21/22 02:00 12/21/22 01:21 95 12/21/22 00:59 95 12/20/22 19:46 95 12/20/22 14:02 95 Intake and Output 12/20/22 12/21/22 12/21/22 22:59 06:59 14:59 Other: Voiding Method Toilet Toilet # Voids 2 Weight 61.235 kg Patient is an elderly female, very pleasant, in no acute distress. Patient is alert awake oriented to time place and person. Patient knows it is December 2022 and that she is in [facility] in [place]. Speech and language functions are normal. Patient can name and repeat very well. No aphasia or dysarthria. Attention, concentration and fund of knowledge is adequate. On cranial nerve examination, pupils are equal, round and reacting to light, visual ardon are full on confrontation, with no neglect on double simultaneous stimulation. Extraocular muscles are intact with no nystagmus. Patient has left facial weakness, which is probably chronic from previous CVA. She has mild drooling left side. Her tongue protrudes to the midline. Palatal elevation and sensation normal, hearing and shoulder shrug normal, facial sensation normal. On muscle strength testing, there is no pronator drift with the right side. She has complete spastic plegic left upper extremity from previous stroke. No movement with the left upper extremity. Patient's strength is normal in the right lower extremity. On the left lower extremity, hip flexion is about 3+, patient has AFO in the left foot. Deep tendon reflexes are 3 in the upper limbs at biceps and brachioradialis bilaterally. Knees brisk on the left as compared to the right. Plantar is up on the left. Sensory to touch is slightly decreased in the right arm and right leg as compared to the left. Cerebellar function showed no ataxia for [id number] or [id number] testing with the right side. Cannot perform with the left side. Tone is significantly increased in the left side and bulk of muscles normal. Gait deferred.. On general examination, there is no carotid bruit or murmur, S1-S2 audible. Chest is clear on consultation. Abdomen is soft nontender. No organomegaly, bowel sounds present. Peripheral pulses are present. No edema. Results - Laboratory Findings CBC and BMP: 12/20/22 15:06 12/20/22 15:06 Abnormal Lab Findings: Abnormal Labs 12/20/22 12/20/22 15:06 15:06 Chloride 110 H Glucose 114 H AST 37 H Urine Protein 1+ H Urine Mucus Rare H U Benzodiazepines Scrn Detected H Assessment and Plan Assessment: * Transient episode of memory loss 3. The first time it happened was about 3 weeks ago, when she lost memory of her vacation in [place] where she stayed 3 nights in a cabin. She had another episode 2 weeks ago and then last night with loss of memory. She didn't lose control of bowels. Rule out seizure, TIA versus transient global amnesia. * Hypertension * Hyperlipidemia * Visual disturbance since cataract surgery * History of CVA in November 2017, with left-sided hemiparesis, (arm more affected than the leg) * Presence of permanent pacemaker 2019. * X tobacco use Plan: * Patient needs further workup to rule out stroke/TIA versus focal seizures. * Patient cannot have MRI because of pacemaker. We will check CT head, and CTA of head and neck to evaluate for ICA or large vessel stenosis or occlusion. * 2-D echo with bubble study to rule out PFO. * Cardiology consultation for pacemaker interrogation rule out paroxysmal atrial fibrillation. Continue telemetry. * Fasting a.m. lipid panel, hemoglobin A1c * B12, folate, TSH. * Patient was taking aspirin 81 mg daily. We will increase aspirin to 162 mg. Further management based upon above test results. * Neurology will follow. Thank you for the consult.
--- NOTE | 2022-12-21 14:39 | CT ---
EXAMINATION TYPE: CT brain wo con CT DLP: 1110.20 mGycm, Automated exposure control for dose reduction was used. DATE OF EXAM: 12/21/2022 2:30 PM COMPARISON: CTA head neck 01/25/2021 CLINICAL INDICATION:Female, 72 years old with history of TIA vs CVA vs Seizure, TECHNIQUE: Brain: Multiple axial CT images of the brain were obtained without IV contrast. Coronal and sagittal reformats reviewed. FINDINGS: Brain: Extra-axial spaces: No abnormal extra-axial fluid collections. Ventricular system: Within normal limits Cerebral parenchyma: Cerebral atrophy. No acute intraparenchymal hemorrhage or mass effect. Remote r ight kamara radiata injury with extension to the centrum semiovale. The alston-white junction is well d ifferentiated. Scattered hypoattenuating areas are seen within the white matter. Cerebellum: Unremarkable. Mass effect: No evidence of midline shift. Intracranial vasculature: Atherosclerotic calcifications of the intracranial vessels. Soft tissues: Normal. Calvarium/osseous structures: No depressed skull fracture. Paranasal sinuses and mastoid air cells: Clear Visualized orbits: Bilateral aphakia IMPRESSION: 1. No acute intracranial process. 2. Remote right kamara radiata injury with extension to the centrum semiovale. 3. Nonspecific white matter changes, likely secondary to chronic small vessel ischemic disease.
--- NOTE | 2022-12-21 15:05 | CT ---
EXAMINATION TYPE: CT angio head neck CT DLP: 1110.20 mGycm, Automated exposure control for dose reduction was used. DATE OF EXAM: 12/21/2022 2:46 PM COMPARISON: CTA head neck 01/25/2021. CLINICAL INDICATION:Female, 72 years old with history of TIA vs CVA vs Seizure; [facility], TECHNIQUE: Axially acquired helical CT angiogram of the head and neck was obtained with contrast util izing 75 cc of Isovue-370 administered intravenously. Axial images are supplemented with 3D reconstru ctions which were post-processed at an independent workstation. NASCET criteria used. FINDINGS: CTA HEAD: No evidence of acute intracranial hemorrhage, mass effect, or midline shift. The ventricles, sulci, a nd cisterns are unremarkable. The visualized portions of the internal carotid arteries, middle cerebral arteries, anterior cerebral arteries, and posterior cerebral arteries are patent. The basilar and vertebral arteries are patent. CTA NECK: Right Carotid System: The common carotid artery and external carotid artery are patent. Mild atherosclerotic calcification at the bifurcation. The carotid bifurcation demonstrates no evidence of hemodynamically significant s tenosis. The remaining portions of the internal carotid artery demonstrate normal size without signif icant narrowing. Left Carotid System: The common carotid artery and external carotid artery are patent. Mild atelectatic calcification at t he bifurcation. The carotid bifurcation demonstrates no evidence of hemodynamically significant steno sis. The remaining portions of the internal carotid artery demonstrate normal size without significan t narrowing. Vertebral arteries are patent without evidence hemodynamically significant stenosis. Fenestration not ed in the right vertebral artery again. Left vertebral artery is again dominant. There is a three-vessel aortic arch. The origins of the great vessels are patent. Mild atheroscleroti c calcification at the origin of the left subclavian artery. No evidence of hemodynamically significa nt stenosis. Left chest wall cardiac pacemaking device. Centrilobular emphysematous changes. IMPRESSION: 1. No evidence of dissection of the cervical internal carotid arteries or vertebral arteries or any e vidence of significant stenosis at the carotid bifurcations. 2. No evidence of high-grade stenosis or intracranial aneurysm.
--- NOTE | 2022-12-21 19:21 | P.HPIM ---
History of Present Illness H&P Date: 12/21/22 Chief Complaint: Forgetful episode This is a pleasant 72-year-old patient who follows with Dr. Thony Choi. Patient is accompanied by her . Chronic stable medical conditions include hard of hearing, hypothyroid, stroke in 2018 with weakness on the left side. Left shoulder subluxation. IBS. Has a pacemaker. Anxiety. At her baseline has a left arm extreme weakness. Can only move some fingers. Able to use the left leg with the brace. 3 weeks ago the patient and had gone to [place]. Patient could not remember about getting old event. 2 weeks ago patient woke up in the morning felt very confused. Did not recognize her . Or the place. Patient was taken down to [facility]. Had 3 computed tomography scan dose. There were transferred to [facility]. We will discharged home. They felt it could be UTI and was given antibiotics. Yesterday patient again woke up confused could not recognize things. Now she also felt a bit more weak on the left side more than usual. Lasted for a few hours. No fever no chills. No urinary symptoms. Review of systems: GEN.: Tired EYES: None HEENT: Decreased hearing NECK: None RESPIRATORY: None CARDIOVASCULAR: None GASTROINTESTINAL: None GENITOURINARY: None MUSCULOSKELETAL: Left leg brace LYMPHATICS: None HEMATOLOGICAL: None PSYCHIATRY: None NEUROLOGICAL: As above, no tongue biting or incontinence Past medical history to include: Stroke with left-sided weakness left arm greater than left leg, hypothyroid, IBS, osteoporosis, left shoulder subluxation, pacemaker, anxiety, Social history: Patient smoked about 15 years about a pack a day stopped in . No alcohol. Lives with . Physical examination: VITAL SIGNS: 97.8, 116, 16, 141/93, 96% room air GENERAL: BMI 26.4, reclining in bed awake. EYES: Pupils equal. Conjunctiva normal. HEENT: External appearance of nose and ears normal, oral cavity grossly normal. NECK: JVD not raised; masses not palpable. HEART: First and second heart sounds are normal; no edema. LUNGS: Respiratory rate normal; clear to auscultation. ABDOMEN: Soft, nontender, liver spleen not palpable, no masses palpable. PSYCH: Alert and oriented x3; mood and affect normal. MUSCULOSKELETAL:No Clubbing/cyanosis;muscles-grossly intact. OA NEUROLOGICAL: [Cranial nerves grossly intact; no facial asymmetry, power in the left arm 1/5. Power in the left leg 3/5. LYMPHATICS: No lymph nodes palpable in the axilla and neck INVESTIGATIONS, reviewed in the clinical context: White count 6.5 hemoglobin 12.7 platelets 198 sodium 145 progression 3.6 BUN 16 creatinine 0.7 to Urine drug screen: Benzodiazepines detected EKG tracing personally reviewed by me-normal sinus rhythm. Chest x-ray film personally reviewed by me-pacemaker. Unremarkable Assessment and plan: -Recurrent TIA/transient global amnesia. Patient had an episode 3 weeks ago when he had gone to [place] and she could not remember anything at all. Subsequently 2 weeks ago had a similar episode. Did go to [facility] to the CAT scans were negative. It was then felt to be UTI possibly contributing to the presentation. Yesterday morning at the same episode. Some left-sided weakness was felt. That improved. No tongue biting or incontinence. Rule out seizure -Chronic left-sided hemiparesis left arm more than the left leg. Left leg is a brace. From stroke -Irritable bowel syndrome Bentyl when necessary -Essential hypertension Toprol-XL 25 mg a day -Hypothyroid Synthroid 50 g a day -Hyperlipidemia Crestor 40 mg a day Care was discussed with patient and the bedside. Carotid Doppler, CT angiogram of the head and neck, consultation to neurology done. EEG ordered. Aspirin.. Past Medical History Past Medical History: Cancer, CVA/TIA, Hearing Disorder / Deafness, Musculoskeletal Disorder, Thyroid Disorder Additional Past Medical History / Comment(s): fatigues easily. 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 IBS, steroids Feb 2018. Osteoporosis. Skin cancer History of Any Multi-Drug Resistant Organisms: None Reported Past Surgical History: Hysterectomy, Orthopedic Surgery, Pacemaker Additional Past Surgical History / Comment(s): Sinus surg x2, knee procedure, Colonoscopy, EGD Past Anesthesia/Blood Transfusion Reactions: Motion Sickness Additional Past Anesthesia/Blood Transfusion Reaction / Comment(s): no hx blood transfusion, rare motion sickness Type of Cardiac Device: Permanent Pacemaker Device Placement Date:: 2019 Past Psychological History: Anxiety Smoking Status: Former smoker Past Alcohol Use History: None Reported Additional Past Alcohol Use History / Comment(s): quit smoking , smoked approx 15yrs-1ppd Past Drug Use History: None Reported - Past Family History Mother Family Medical History: No Reported History Medications and Allergies Home Medications Medication Instructions Recorded Confirmed Type Dicyclomine [Bentyl] 10 mg PO QID PRN 04/04/18 12/20/22 History diazePAM [Valium] 5 mg PO Q8H PRN 04/04/18 12/20/22 History Rosuvastatin Calcium [Crestor] 40 mg PO DAILY 05/11/20 12/20/22 History Eszopiclone [Lunesta] 2 mg PO HS 12/20/22 12/20/22 History Famotidine [Pepcid] 20 mg PO BID PRN 12/20/22 12/20/22 History Levothyroxine Sodium [Synthroid] 50 mcg PO DAILY 12/20/22 12/20/22 History Metoprolol Succinate (ER) [Toprol 25 mg PO DAILY 12/20/22 12/20/22 History Xl] Allergies Allergy/AdvReac Type Severity Reaction Status Date / Time moxifloxacin [From Avelox] Allergy Anaphylaxis Verified 12/20/22 14:52 Physical Exam Vitals: Vital Signs Temp Pulse Pulse Resp BP BP BP 12/21/22 07:00 97.8 F 116 H 16 141/93 12/21/22 02:00 81 147/85 12/21/22 01:21 97.9 F 98 16 172/91 12/21/22 00:59 87 18 162/92 12/20/22 19:46 89 18 140/89 12/20/22 14:02 98.2 F 70 18 181/72 Pulse Ox 12/21/22 07:00 96 12/21/22 02:00 12/21/22 01:21 95 12/21/22 00:59 95 12/20/22 19:46 95 12/20/22 14:02 95 Intake and Output 12/20/22 12/21/22 12/21/22 22:59 06:59 14:59 Other: Voiding Method Toilet # Voids 2 Weight 61.235 kg Results CBC & Chem 7: 12/20/22 15:06 12/20/22 15:06 Labs: Abnormal Lab Results - Last 24 Hours (Table) 12/20/22 12/20/22 Range/Units 15:06 15:06 Chloride 110 H (98-107) mmol/L Glucose 114 H (74-99) mg/dL AST 37 H (14-36) U/L Urine Protein 1+ H (Negative) Urine Mucus Rare H (None) /hpf U Benzodiazepines Scrn Detected H (NotDetected) Thrombosis Risk Factor Assmnt - Choose All That Apply Any of the Below Risk Factors Present?: Yes Each Factor Represents 1 point: Obesity (BMI >25) Each Risk Factor Represents 2 Points: Age 61-74 years Thrombosis Risk Factor Assessment Total Risk Factor Score: 3 Thrombosis Risk Factor Assessment Level: Moderate Risk
[2022-12-21] MEDS ORDERED: TEMAZEPAM 15 MG CAP PO SCH (21:00)
[2022-12-22] MEDS: LEVOTHYROXINE 50 MCG TAB PO SCH (06:49)
[2022-12-22] MEDS: ATORVASTATIN 80 MG TAB PO SCH (08:07)
[2022-12-22] MEDS: ASPIRIN 81 MG PO SCH (08:07)
[2022-12-22] MEDS: METOPROLOL SUCCINATE (ER) 25 MG TAB.ER.24H PO SCH (08:07)
[2022-12-22 09:27] LABS: Chol/HDL Ratio 2.91 Ratio; LDL Cholesterol,Calculated 71.5 mg/dL (0.0-131.0)
--- NOTE | 2022-12-22 10:16 | P.CRDCN ---
History of Present Illness History of present illness: HISTORY OF PRESENT ILLNESS: This is a 72-year-old female with a past medical history significant for CVA, hyperlipidemia, and bradycardia with previous dual-chamber pacemaker implantation. Patient follows with a harmonica maker, Dr. Michelle. We have been asked to see the patient in consultation for pacemaker interrogation. Patient examined at the bedside. Patient states that she presented to the hospital with episodes of memory loss. She states that 2 weeks ago she woke up and felt as though her memory was gone. She states that she did not recognize her about was her son. She also reports increased generalized weakness. She states the episode lasted for approximately 2 hours. She reports having 2 episodes of this altered mental status over the past 2 weeks. The patient denies any chest pain or pressure. She denies any shortness of breath. She denies any dizziness or lightheadedness. She denies any palpitations. Pacemaker was interrogated with no significant events. Patient had one episode of atrial fibrillation that lasted 8 seconds. * EKG reveals sinus mechanism with no signs of acute ischemia * Chest xray negative for acute process * Laboratory data: WBC 6.5. Hemoglobin 12.7. Platelet count 198. Sodium 145. Potassium 3.6. BUN 16. Creatinine 0.72. Troponin negative 1. LDL 71.5. * Current home cardiac medications include metoprolol succinate 25 mg daily and Crestor 40 mg daily * Most recent echocardiogram obtained in the office in 2020 revealed ejection fraction 55%, mild aortic regurgitation, mild mitral regurgitation, mild tricuspid regurgitation REVIEW OF SYSTEMS: At the time of my exam: CONSTITUTIONAL: Denies fever or chills. HEENT: Denies blurred vision, vision changes, or eye pain. Denies hemoptysis CARDIOVASCULAR: Denies chest pain. Denies orthopnea. Denies PND. Denies pa lpitations RESPIRATORY: Denies shortness of breath. GASTROINTESTINAL: Denies abdominal pain. Denies nausea or vomiting. HEMATOLOGIC: Denies bleeding disorders. GENITOURINARY: Denies any blood in urine. SKIN: Denies pruitis. Denies rash. PHYSICAL EXAM: VITAL SIGNS: Reviewed. GENERAL: Well-developed in no acute distress. HEENT: Head is normocephalic. Pupils are equal, round. Sclerae anicteric. Mucous membranes of the mouth are moist. Neck supple. No JVD or thyromegaly LUNGS: Respirations even and unlabored. Lungs essentially clear to auscultation bilaterally. HEART: Regular rate and rhythm. S1 and S2 heard. ABDOMEN: Soft. Nondistended. Nontender. EXTREMITIES: Normal range of motion. No clubbing or cyanosis. Peripheral pulses intact. No lower extremity edema NEUROLOGIC: Awake and alert. Oriented x 3. ASSESSMENT: Transient episode of memory loss 3, does not appear to be cardiac in origin History of bradycardia status post pacemaker implantation Hyperlipidemia History of CVA with residual left-sided weakness Former nicotine dependence PLAN: 2D echo ordered. Await results. Pacemaker interrogated revealing one isolated episode of atrial fibrillation lasting 8 seconds. This is unlikely to be causing the patient's symptoms. No plans to begin anticoagulation at this time. Patient's blood pressure slightly on the higher side. We will defer to neurology if they prefer to have patient's blood pressure running on the higher side if they believe she had a neurological event. If not, would recommend beginning SURAJ/ARB for optimal blood pressure control Continue telemetry monitoring Await further recommendations from neurology Further recommendations pending patient course Patient to follow up post discharge with her primary harmonica maker Nurse practitioner note has been reviewed by physician. Signing provider agrees with the documented findings, assessment, and plan of care. Past Medical History Past Medical History: Cancer, CVA/TIA, Hearing Disorder / Deafness, Musculoskeletal Disorder, Thyroid Disorder Additional Past Medical History / Comment(s): fatigues easily. 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 IBS, steroids Feb 2018. Osteoporosis. Skin cancer History of Any Multi-Drug Resistant Organisms: None Reported Past Surgical History: Hysterectomy, Orthopedic Surgery, Pacemaker Additional Past Surgical History / Comment(s): Sinus surg x2, knee procedure, Colonoscopy, EGD Past Anesthesia/Blood Transfusion Reactions: Motion Sickness Additional Past Anesthesia/Blood Transfusion Reaction / Comment(s): no hx blood transfusion, rare motion sickness Type of Cardiac Device: Permanent Pacemaker Device Placement Date:: 2019 Past Psychological History: Anxiety Smoking Status: Former smoker Past Alcohol Use History: None Reported Additional Past Alcohol Use History / Comment(s): quit smoking , smoked approx 15yrs-1ppd Past Drug Use History: None Reported - Past Family History Mother Family Medical History: No Reported History Medications and Allergies Home Medications Medication Instructions Recorded Confirmed Type Dicyclomine [Bentyl] 10 mg PO QID PRN 04/04/18 12/20/22 History diazePAM [Valium] 5 mg PO Q8H PRN 04/04/18 12/20/22 History Rosuvastatin Calcium [Crestor] 40 mg PO DAILY 05/11/20 12/20/22 History Eszopiclone [Lunesta] 2 mg PO HS 12/20/22 12/20/22 History Famotidine [Pepcid] 20 mg PO BID PRN 12/20/22 12/20/22 History Levothyroxine Sodium [Synthroid] 50 mcg PO DAILY 12/20/22 12/20/22 History Metoprolol Succinate (ER) [Toprol 25 mg PO DAILY 12/20/22 12/20/22 History Xl] Allergies Allergy/AdvReac Type Severity Reaction Status Date / Time moxifloxacin [From Avelox] Allergy Anaphylaxis Verified 12/20/22 14:52 Physical Exam Vitals: Vital Signs Temp Pulse Resp BP BP Pulse Ox 12/22/22 04:08 98.1 F 92 16 164/78 92 L 12/21/22 20:08 97.3 F L 86 16 150/84 92 L 12/21/22 20:00 86 16 12/21/22 17:06 92 L 12/21/22 14:01 98.9 F 96 16 149/87 96 Intake and Output 12/21/22 12/22/22 12/22/22 22:59 06:59 14:59 Other: Voiding Method Toilet # Voids 2 2 Results 12/20/22 15:06 12/20/22 15:06 Current Medications Generic Name Dose Route Start Last Admin Trade Name Freq PRN Reason Stop Dose Admin Aspirin 162 mg 12/21/22 13:30 12/22/22 08:07 Aspirin 81 Mg PO 162 mg DAILY JOHAN Administration Atorvastatin Calcium 80 mg 12/21/22 09:00 12/22/22 08:07 Atorvastatin 80 Mg Tab PO 80 mg DAILY JOHAN Administration Dicyclomine HCl 10 mg 12/21/22 02:12 Dicyclomine 10 Mg Cap PO QID PRN IBS Famotidine 20 mg 12/21/22 02:12 12/21/22 20:08 Famotidine 20 Mg Tab PO 20 mg BID PRN Administration GI Upset Levothyroxine Sodium 50 mcg 12/21/22 06:30 12/22/22 06:49 Levothyroxine 50 Mcg Tab PO 50 mcg DAILY@0630 JOHAN Administration Metoprolol Succinate 25 mg 12/21/22 09:00 12/22/22 08:07 Metoprolol Succinate (Er) 25 Mg Tab.Er.24h PO 25 mg DAILY JOHAN Administration Temazepam 15 mg 12/21/22 21:00 12/21/22 20:02 Temazepam 15 Mg Cap PO 15 mg HS JOHAN Administration Intake and Output 12/21/22 12/22/22 12/22/22 22:59 06:59 14:59 Other: Voiding Method Toilet # Voids 2 2 12/20/22 15:06 12/20/22 15:06
--- NOTE | 2022-12-22 12:48 | CA ---
Transthoracic Echo Report Name: dEwardo Green Age: 72 Gender: F : 1950 Exam Date: 12/21/2022 14:27 Exam Location: [place] [facility] Ht (in): 60 Wt (lb): 135 Ordering Physician: Wu Rodriguez MD Attending/Referring Phys: Revenue Specialist Maddie Jackson RDCS Procedure CPT: Indications: Possible Stroke/TIA vs seizure Cardiac Hx: Technical Quality: Good Contrast 1: Total Dose (mL): Contrast 2: Total Dose (mL): MEASUREMENTS (Male / Female) Normal Values 2D ECHO LV Diastolic Diameter PLAX 4.0 cm 4.2 - 5.9 / 3.9 - 5.3 cm LV Systolic Diameter PLAX 2.6 cm IVS Diastolic Thickness 1.1 cm 0.6 - 1.0 / 0.6 - 0.9 cm LVPW Diastolic Thickness 1.2 cm 0.6 - 1.0 / 0.6 - 0.9 cm LV Relative Wall Thickness 0.6 RV Internal Dim ED PLAX 2.4 cm LA Systolic Diameter LX 2.9 cm 3.0 - 4.0 / 2.7 - 3.8 cm LV Diastolic Volume MOD BP 39.0 cm??? 67 - 155 / 56 - 104 cm??? LV Systolic Volume MOD BP 19.2 cm??? 22 - 58 / 19 - 49 cm??? LV Ejection Fraction MOD BP 50.6 % >= 55 % LV Diastolic Volume MOD 4C 40.0 cm??? LV Systolic Volume MOD 4C 17.3 cm??? LV Ejection Fraction MOD 4C 56.7 % LV Diastolic Length 4C 5.7 cm LV Systolic Length 4C 4.9 cm LV Diastolic Volume MOD 2C 36.6 cm??? LV Systolic Volume MOD 2C 18.4 cm??? LV Ejection Fraction MOD 2C 49.6 % LV Diastolic Length 2C 6.0 cm LV Systolic Length 2C 5.8 cm LA Volume 40.2 cm??? 18 - 58 / 22 - 52 cm??? M-MODE Aortic Root Diameter MM 3.2 cm AV Cusp Separation MM 2.2 cm DOPPLER AV Peak Velocity 117.2 cm/s AV Peak Gradient 5.5 mmHg MV Area PHT 6.3 cm??? Mitral E Point Velocity 87.0 cm/s Mitral A Point Velocity 126.3 cm/s Mitral E to A Ratio 0.7 MV Deceleration Time 119.9 ms MV E' Velocity 6.8 cm/s Mitral E to MV E' Ratio 12.7 TR Peak Velocity 236.0 cm/s TR Peak Gradient 22.3 mmHg Right Ventricular Systolic Press 26.8 mmHg FINDINGS Left Ventricle Left ventricular ejection fraction is estimated at 55-60 %. Left ventricular cavity size normal. Mildly increased septal wall thickness. Mildly increased posterior wall thickness. Right Ventricle Normal right ventricular size and function. Right ventricular systolic pressure within normal limits. Right Atrium Normal right atrial size. Left Atrium Normal left atrial size. No evidence for an atrial septal defect. Negative saline bubbles study Mitral Valve Structurally normal mitral valve. No mitral stenosis, regurgitation or prolapse. Aortic Valve Trileaflet aortic valve. No aortic valve stenosis. Trace to mild aortic regurgitation. Tricuspid Valve Structurally normal tricuspid valve. Mild tricuspid regurgitation. Pulmonic Valve Structurally normal pulmonic valve. No pulmonic regurgitation. Pericardium Normal pericardium. No pericardial effusion. Aorta Normal size aortic root and proximal ascending aorta. CONCLUSIONS Normal LV systolic function Previewed by: Dr. Andrea Leija MD (Electronically Signed) Final Date: 22 December 2022 12:47
[2022-12-22] MEDS ORDERED: ONDANSETRON 4 MG/2 ML VIAL IVP PRN (13:14)
[2022-12-22 15:26] VITALS: BP 130/71; PULSE 89; RESP 16; TEMP 98.4
--- NOTE | 2022-12-22 16:54 | P.DS ---
Providers Date of admission: 12/20/22 18:11 Expected date of discharge: 12/22/22 Attending physician: Thor Felipe Consults: 12/20/22 18:23 Consult Physician Urgent Consulting Provider: Matthew Bridges Consult Reason/Comments: Altered mental status Do you want consulting provider notified?: Yes 12/21/22 13:31 Consult Physician Routine Consulting Provider: Oswald Wilcox Consult Reason/Comments: TIA pacemaker interrogation, r/o arryhtmia Do you want consulting provider notified?: Yes Primary care physician: Thony Choi MD Hospital Course: Chief Complaint: Forgetful episode This is a pleasant 72-year-old patient who follows with Dr. Thony Choi. Patient is accompanied by her . Chronic stable medical conditions include hard of hearing, hypothyroid, stroke in 2018 with weakness on the left side. Left shoulder subluxation. IBS. Has a pacemaker. Anxiety. At her baseline has a left arm extreme weakness. Can only move some fingers. Able to use the left leg with the brace. 3 weeks ago the patient and had gone to [place]. Patient could not remember about getting old event. 2 weeks ago patient woke up in the morning felt very confused. Did not recognize her . Or the place. Patient was taken down to [facility]. Had 3 computed tomography scan dose. There were transferred to [facility]. We will discharged home. They felt it could be UTI and was given antibiotics. Yesterday patient again woke up confused could not recognize things. Now she also felt a bit more weak on the left side more than usual. Lasted for a few hours. No fever no chills. No urinary symptoms. December 22: Patient CT angiogram of the head and neck unremarkable. 2-D echocardiogram unremarkable. EEG results discussed with Dr. Echeverria. No epilepsy. Patient be discharged home 3 weeks of aspirin and Plavix to continue indefinitely. Care was discussed at length with the patient and the . Questions answered. Per cardiology patient had a second episode of atrial fibrillation on interrogation of the pacemaker. No antigravity patient put them at this point. Patient to follow-up with cardiology outpatient. Discussion and discharge planning more than 35 minutes Past medical history to include: Stroke with left-sided weakness left arm greater than left leg, hypothyroid, IB S, osteoporosis, left shoulder subluxation, pacemaker, anxiety, Social history: Patient smoked about 15 years about a pack a day stopped in . No alcohol. Lives with . Physical examination: VITAL SIGNS: 98.4, 89, 16, 1:30/71, 96% room air GENERAL: BMI 26.4, reclining in bed awake. EYES: Pupils equal. Conjunctiva normal. HEENT: External appearance of nose and ears normal, oral cavity grossly normal. NECK: JVD not raised; masses not palpable. HEART: First and second heart sounds are normal; no edema. LUNGS: Respiratory rate normal; clear to auscultation. ABDOMEN: Soft, nontender, liver spleen not palpable, no masses palpable. PSYCH: Alert and oriented x3; mood and affect normal. MUSCULOSKELETAL:No Clubbing/cyanosis;muscles-grossly intact. OA NEUROLOGICAL: [Cranial nerves grossly intact; no facial asymmetry, power in the left arm 1/5. Power in the left leg 3/5. INVESTIGATIONS, reviewed in the clinical context: 2-D echocardiogram: EF 55-60%. Negative saline bubble study. CT angiogram of the brain and neck. Unremarkable EEG: Reported to be negative Hemoglobin A1c: 5.9 B12 5554 late 21.6 TSH 1.2 LDL 31.5 White count 6.5 hemoglobin 12.7 platelets 198 sodium 145 progression 3.6 BUN 16 creatinine 0.7 to Urine drug screen: Benzodiazepines detected EKG tracing personally reviewed by me-normal sinus rhythm. Chest x-ray film personally reviewed by me-pacemaker. Unremarkable Assessment and plan: -Recurrent TIA/transient global amnesia. 2-D echo, bubble study, CT angiogram of brain and neck, EEG: All negative patient to take aspirin for 3 weeks. Also started on Plavix to continue indefinitely -Possible 8 second run of atrial fibrillation on pacemaker check. Not for anticoagulation per cartilage E. He'll follow-up with cartilage E outpatient. -Chronic left-sided hemiparesis left arm more than the left leg. Left leg is a brace. From stroke -Irritable bowel syndrome Bentyl when necessary -Essential hypertension Toprol-XL 25 mg a day -Hypothyroid Synthroid 50 g a day -Hyperlipidemia Crestor 40 mg a day Disposition: Home Plan - Discharge Summary New Discharge Prescriptions: New Aspirin 81 mg PO DAILY #21 tab Clopidogrel [Plavix] 75 mg PO DAILY #60 tablet Prochlorperazine [Compazine] 5 mg PO Q8H PRN #15 tab PRN Reason: Nausea Continue diazePAM [Valium] 5 mg PO Q8H PRN PRN Reason: Anxiety Dicyclomine [Bentyl] 10 mg PO QID PRN PRN Reason: IBS Rosuvastatin Calcium [Crestor] 40 mg PO DAILY Metoprolol Succinate (ER) [Toprol XL] 25 mg PO DAILY Levothyroxine Sodium [Synthroid] 50 mcg PO DAILY Famotidine [Pepcid] 20 mg PO BID PRN PRN Reason: Gi Upset Eszopiclone [Lunesta] 2 mg PO HS Discharge Medication List Dicyclomine [Bentyl] 10 mg PO QID PRN 04/04/18 [History] diazePAM [Valium] 5 mg PO Q8H PRN 04/04/18 [History] Rosuvastatin Calcium [Crestor] 40 mg PO DAILY 05/11/20 [History] Eszopiclone [Lunesta] 2 mg PO HS 12/20/22 [History] Famotidine [Pepcid] 20 mg PO BID PRN 12/20/22 [History] Levothyroxine Sodium [Synthroid] 50 mcg PO DAILY 12/20/22 [History] Metoprolol Succinate (ER) [Toprol XL] 25 mg PO DAILY 12/20/22 [History] Aspirin 81 mg PO DAILY #21 tab 12/22/22 [Rx] Clopidogrel [Plavix] 75 mg PO DAILY #60 tablet 12/22/22 [Rx] Prochlorperazine [Compazine] 5 mg PO Q8H PRN #15 tab 12/22/22 [Rx] Follow up Appointment(s)/Referral(s): improvement directordr [Other] - 2 Weeks neurologistdr [Other] - 2 Weeks Thony Choi MD [Primary Care Provider] - 1-2 days Discharge Disposition: HOME SELF-CARE
--- NOTE | 2022-12-22 17:47 | EEG ---
ELECTROENCEPHALOGRAM REPORT PREAMBLE: This is a 72-year-old female with episode of unresponsiveness. Rule out seizures. EEG FINDINGS: This is a 21-channel digital EEG recorded with video component, utilizing 10/20 [employer] System with referential and bipolar montages. Background consists of well-developed, well-regulated, moderate-voltage activity in 9 to 10 Hz alpha. Background is posterior dominant and reactive to eye opening and closing. Photic driving response was seen with some flash frequencies. Different stages of sleep were not seen. No focal or generalized epileptiform activity was seen. EKG channel showed no definitive arrhythmia. IMPRESSION: This is a normal awake and drowsy EEG. No focal, lateralized, or epileptiform activity was seen. MMODL / IJN: [id number] /
--- NOTE | 2022-12-24 13:06 | P.PN ---
Subjective Progress Note Date: 12/22/22 Patient was seen for a follow-up. Patient is laying comfortably in the bed. Patient denies any further episodes of loss of memory. No further strokelike symptoms. Objective - Vital Signs Vital signs: Vital Signs Temp 98.3 F 12/22/22 08:00 Pulse 98 12/22/22 08:00 Resp 17 12/22/22 08:00 BP 154/84 12/22/22 08:00 Pulse Ox 96 12/22/22 09:04 FiO2 Intake & Output 12/21/22 12/22/22 12/22/22 18:59 06:59 18:59 Other: Voiding Method Toilet Toilet Toilet # Voids 2 2 1 - Exam Examination remains unchanged. Detail testing deferred. - Labs CBC & Chem 7: 12/20/22 15:06 12/20/22 15:06 Labs: Abnormal Lab Results - Last 24 Hours (Table) 12/20/22 Range/Units 09:00 Triglycerides 171.00 H (0.00-149.00) mg/dL Assessment and Plan Assessment: * Transient episode of memory loss 3. The first time it happened was about 3 weeks ago, when she lost memory of her vacation in [place] where she stayed 3 nights in a cabin. She had another episode 2 weeks ago and then last night with loss of memory. She did lose control of bowels. Rule out seizure, TIA versus transient global amnesia. * Hypertension * Hyperlipidemia * Visual disturbance since cataract surgery * History of CVA in November 2017, with left-sided hemiparesis, (arm more affected than the leg) * Presence of permanent pacemaker 2019. * X tobacco use Plan: * Patient needs further workup to rule out stroke/TIA versus focal seizures. * Patient cannot have MRI because of pacemaker. * CT head revealed no acute intracranial process. Remote right kamara radiata injury with extension into the centrum semiovale. Nonspecific white matter changes, likely secondary to chronic small vessel ischemic disease. I personally reviewed CT head and agree with the findings. * CTA of head and neck revealed no evidence of dissection of the cervical internal carotid arteries or vertebral arteries or any evidence of significant stenosis at the carotid bifurcations. No evidence of high-grade stenosis or intracranial aneurysm. * 2-D echo with bubble study revealed normal left ventricle systolic function with EF 55-60%. Mildly increased septal wall thickness. Mildly increased posterior wall thickness. Left atrium is normal in size. No evidence for an atrial septal defect. Negative saline bubble study. * EEG was normal awake and drowsy. No focal, lateralized or epileptiform activity was seen. * Cardiology input appreciated. Pacemaker interrogation revealed 8 second of run of atrial fibrillation. Cardiology do not believe patient needs anticoagu lation. * Fasting a.m. lipid panel with cholesterol 161, LDL 71, HDL 55, triglycerides 171. Continue Crestor 40 mg daily. * Hemoglobin A1c 5.9 * B12 555, folate 21.6, TSH 1.29. All normal. * All workup performed as mentioned above negative. * Concern for possible TIA. Recommend placing patient on dual antiplatelet medication aspirin 81 mg and Plavix 75 mg for 21 days. Thereafter stop aspirin and continue Plavix indefinitely. * Neurologically clear for discharge. Recommend patient follow up with neurologist in around 2 weeks. Also to follow up with cardiology regarding rule out arrhythmia. * Discussed with primary team.
== END 2022-12-22 16:03 | disposition home or self-care (01) ==
LOC: EC 13:49 → 5NMEDONC 18:11 → INTOOBSV 18:11 → 5NMEDONC 20:51 → 6NMEDSUR 22:58 → UNDODISIN 12-22 16:03
PROVIDERS: ADMIT Hospitalist; ATTEND Hospitalist
DX: G45.9 Transient cerebral ischemic attack, unspecified (principal); I69.354 Hemiplegia and hemiparesis following cerebral infarction affecting left non-dominant side; F41.9 Anxiety disorder, unspecified; H91.90 Unspecified hearing loss, unspecified ear; K58.9 Irritable bowel syndrome, unspecified; E03.9 Hypothyroidism, unspecified; I10 Essential (primary) hypertension; E78.5 Hyperlipidemia, unspecified; M81.0 Age-related osteoporosis without current pathological fracture; I67.2 Cerebral atherosclerosis; J43.2 Centrilobular emphysema; I08.2 Rheumatic disorders of both aortic and tricuspid valves; Z79.899 Other long term (current) drug therapy; Z79.890 Hormone replacement therapy; Z88.1 Allergy status to other antibiotic agents; Z90.710 Acquired absence of both cervix and uterus; Z87.891 Personal history of nicotine dependence; Z95.0 Presence of cardiac pacemaker; Z85.820 Personal history of malignant melanoma of skin; Z98.41 Cataract extraction status, right eye
CPT/HCPCS: 96374; 96360; 96361 ×4; 99285; 36415; 94760 ×2; 95816; 93005; 93306; 80061; 80053; 84443; 82607; 82746; 84484; 85025; 81001; 80306; 87086; 83036; 71046; 70496; 70450; 70498; G0378 ×3; J2405; Q9967

== ENCOUNTER 2023-07-20 14:01 | Inpatient (IN) | payer MEDICARE ==
[2023-07-20] MEDS ORDERED: SODIUM CHLORIDE 0.9% 500 ML 500 ML IV ONE (15:19)
[2023-07-20 15:46] LABS: Basophils # (A) 0.1 k/uL (0-0.2); Basophils % (A) 1 %; Eosinophils # (A) 0.1 k/uL (0-0.7); Eosinophils % (A) 1 %; HCT 38.7 % (34.0-46.0); HGB 12.7 gm/dL (11.4-16.0); Lymphocytes # (A) 1.1 k/uL (1.0-4.8); Lymphocytes % (A) 9 %; MCH 29.2 pg (25.0-35.0); MCHC 32.8 g/dL (31.0-37.0); MCV 89.2 fL (80.0-100.0); Monocytes # (A) 0.5 k/uL (0-1.0); Monocytes % (A) 4 %; Neutrophils # (A) 10.1 k/uL (1.3-7.7); Neutrophils % (A) 85 %; Platelet Count 190 k/uL (150-450); RBC 4.34 m/uL (3.80-5.40); RDW 14.2 % (11.5-15.5)
[2023-07-20 15:56] LABS: ALT 20 U/L (4-34); AST 29 U/L (14-36); African American GFR (CKD) >90 (>60 ml/min/1.73 sqM); Albumin 3.7 g/dL (3.5-5.0); Alkaline Phosphatase 82 U/L (38-126); Anion Gap 10 mmol/L; Blood Urea Nitrogen 18 mg/dL (7-17); Calcium 9.4 mg/dL (8.4-10.2); Carbon Dioxide 26 mmol/L (22-30); Chloride 110 mmol/L (98-107); Glucose 101 mg/dL (74-99); Non-African American GFR(CKD) 80 (>60 ml/min/1.73 sqM); Potassium 3.2 mmol/L (3.5-5.1); Sodium 146 mmol/L (137-145); Total Bilirubin 0.4 mg/dL (0.2-1.3); Total Protein 6.6 g/dL (6.3-8.2)
[2023-07-20 16:00] LABS: Appearance,Urine Cloudy (Clear); Bacteria,Urine Moderate /hpf; Bilirubin,Urine Negative (Negative); Blood,Urine Negative (Negative); Color,Urine Colorless; Glucose,Urine (UA) Negative (Negative); Hyaline Casts,Urine 1 /lpf (0-2); Ketones,Urine Negative (Negative); Leukocyte Esterase,Urine Moderate (Negative); Mucus,Urine Rare /hpf; Nitrite,Urine Positive (Negative); PH, Urine 7.5 (5.0-8.0); Protein,Urine Negative (Negative); RBC,Urine 2 /hpf (0-5); Urobilinogen,Urine <2.0 mg/dL (<2.0); WBC,Urine 11 /hpf (0-5)
--- NOTE | 2023-07-20 16:01 | CT ---
EXAMINATION TYPE: CT brain wo con DATE OF EXAM: 07/20/2023 HISTORY: AMS CT DLP: 1090.4 mGycm. Automated Exposure Control for Dose Reduction was Utilized. TECHNIQUE: CT scan of the head is performed without contrast. COMPARISON: Prior CT brain December 21, 2022. FINDINGS: There is no acute intracranial hemorrhage or midline shift identified. There is mild to m oderate diffuse ventricular and sulcal prominence redemonstrated. There is mild to moderate low-atte nuation in the periventricular white matter redemonstrated. The globes are intact and the visualized sinuses are clear. IMPRESSION: No acute intracranial hemorrhage or midline shift. There is [id number] diffuse ag e-related cerebral atrophy and chronic small vessel ischemic change redemonstrated. No significant ch shira from most recent prior CT.
[2023-07-20 16:38] LABS: Partial Thromboplastin Time 23.9 sec (22.0-30.0); Prothrombin Time 10.8 sec (10.0-12.5)
--- NOTE | 2023-07-20 17:01 | ED ---
Altered Mental Status HPI - General Chief Complaint: Altered Mental Status Stated Complaint: Poss UTI Source: patient Mode of arrival: EMS Limitations: no limitations - History of Present Illness Initial Comments: 72-year-old female presents emergency department for altered mental status. Daughter is at bedside and helps provide history. States that her mother has been confused, especially today. She has been weak and barely eating. She was diagnosed with a UTI on Sunday. He was supposed to be getting antibiotics on an outpatient basis as an injection however the primary care has been unable to start this and therefore the patient has gone without any antibiotics. She does have symptoms of dysuria and frequency. Also admits to urge. Patient has no fevers. Admits nausea without vomiting. No chest pain or difficulty breathing. No cough. No falls. Does have a history of stroke with left sided weakness. Denies any new weakness. No other alleviating, precipitating or modifying factors - Related Data Home Medications Medication Instructions Recorded Confirmed Dicyclomine [Bentyl] 10 mg PO QID PRN 04/04/18 07/20/23 diazePAM [Valium] 5 mg PO Q8H PRN 04/04/18 07/20/23 Rosuvastatin Calcium [Crestor] 40 mg PO DAILY 05/11/20 07/20/23 Eszopiclone [Lunesta] 2 mg PO HS 12/20/22 07/20/23 Famotidine [Pepcid] 20 mg PO BID PRN 12/20/22 07/20/23 Metoprolol Succinate (ER) [Toprol 25 mg PO DAILY 12/20/22 07/20/23 XL] Apixaban [Eliquis] 5 mg PO BID 07/20/23 07/20/23 Baclofen 10 mg PO BID 07/20/23 07/20/23 Cranberry Fruit Extract [Cranberry] 500 mg PO DAILY 07/20/23 07/20/23 Cystex 2 tab PO TID PRN 07/20/23 07/20/23 D-Mannose 1 cap PO DAILY 07/20/23 07/20/23 Hyoscyamine Sulfate [Levsin-Sl] 0.125 mg SL TID PRN 07/20/23 07/20/23 Levothyroxine Sodium [Synthroid] 75 mcg PO AC-BRKFST 07/20/23 07/20/23 Multivitamin Fusion Bariactric 1 tab PO DAILY 07/20/23 07/20/23 Ondansetron Odt [Zofran ODT] 4 mg PO QID PRN 07/20/23 07/20/23 Pilocarpine HCl [Vuity 1.25%] 1 drop BOTH EYES DAILY 07/20/23 07/20/23 Previous Rx's Medication Instructions Recorded Aspirin 81 mg PO DAILY #21 tab 12/22/22 Clopidogrel [Plavix] 75 mg PO DAILY #60 tablet 12/22/22 Levofloxacin [Levaquin] 250 mg PO DAILY 5 Days #5 tablet 07/23/23 Allergies Allergy/AdvReac Type Severity Reaction Status Date / Time moxifloxacin [From Avelox] Allergy Anaphylaxis Verified 07/20/23 17:04 Review of Systems ROS Statement: Those systems with pertinent positive or pertinent negative responses have been documented in the HPI. ROS Other: All systems not noted in ROS Statement are negative. Past Medical History Past Medical History: Cancer, CVA/TIA, Hearing Disorder / Deafness, Musculoskeletal Disorder, Thyroid Disorder Additional Past Medical History / Comment(s): fatigues easily. 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 IBS, steroids Feb 2018. Osteoporosis. Skin cancer History of Any Multi-Drug Resistant Organisms: None Reported Past Surgical History: Hysterectomy, Orthopedic Surgery, Pacemaker Additional Past Surgical History / Comment(s): Sinus surg x2, knee procedure, Colonoscopy, EGD Past Anesthesia/Blood Transfusion Reactions: Motion Sickness Additional Past Anesthesia/Blood Transfusion Reaction / Comment(s): no hx blood transfusion, rare motion sickness Type of Cardiac Device: Permanent Pacemaker Device Placement Date:: 2019 Past Psychological History: Anxiety Smoking Status: Former smoker Past Alcohol Use History: None Reported Past Drug Use History: None Reported - Past Family History Mother Family Medical History: No Reported History General Exam Limitations: no limitations General appearance: alert, in no apparent distress Head exam: Present: atraumatic, normocephalic, normal inspection Eye exam: Present: normal appearance, PERRL, EOMI. Absent: scleral icterus, conjunctival injection, periorbital swelling ENT exam: Present: normal exam, mucous membranes moist Neck exam: Present: normal inspection. Absent: tenderness, meningismus, lymphadenopathy Respiratory exam: Present: normal lung sounds bilaterally. Absent: respiratory distress, wheezes, rales, rhonchi, stridor Cardiovascular Exam: Present: regular rate, normal rhythm, normal heart sounds. Absent: systolic murmur, diastolic murmur, rubs, gallop, clicks GI/Abdominal exam: Present: soft, normal bowel sounds. Absent: distended, tenderness, guarding, rebound, rigid Extremities exam: Present: normal inspection, full ROM, normal capillary refill. Absent: tenderness, pedal edema, joint swelling, calf tenderness Back exam: Present: normal inspection Neurological exam: Present: alert, oriented X3, CN II-XII intact Psychiatric exam: Present: normal affect, normal mood Skin exam: Present: warm, dry, intact, normal color. Absent: rash Course Vital Signs 07/20/23 07/20/23 07/20/23 14:09 16:00 17:00 Temperature 97.9 F Pulse Rate 86 74 Pulse Rate [ Pulse Oximetery ] Respiratory 20 Rate Blood Pressure 163/84 155/84 154/79 Blood Pressure [Right Arm] O2 Sat by Pulse 97 95 Oximetry 07/20/23 07/20/23 07/20/23 17:30 18:00 18:30 Temperature Pulse Rate 84 86 87 Pulse Rate [ Pulse Oximetery ] Respiratory Rate Blood Pressure 154/79 160/78 159/78 Blood Pressure [Right Arm] O2 Sat by Pulse 95 95 Oximetry 07/20/23 07/20/23 07/20/23 18:35 19:00 20:00 Temperature Pulse Rate 89 82 107 H Pulse Rate [ Pulse Oximetery ] Respiratory Rate Blood Pressure 159/78 159/78 Blood Pressure [Right Arm] O2 Sat by Pulse Oximetry 07/20/23 07/20/23 07/20/23 21:00 22:00 23:00 Temperature Pulse Rate 81 79 93 Pulse Rate [ Pulse Oximetery ] Respiratory 18 18 18 Rate Blood Pressure 162/81 158/87 164/83 Blood Pressure [Right Arm] O2 Sat by Pulse 96 95 Oximetry 07/21/23 07/21/23 07/21/23 00:00 01:00 06:10 Temperature 98.2 F Pulse Rate 71 87 Pulse Rate [ 81 Pulse Oximetery ] Respiratory 18 18 16 Rate Blood Pressure 160/81 156/84 Blood Pressure 165/75 [Right Arm] O2 Sat by Pulse 95 Oximetry Medical Decision Making - Medical Decision Making Was pt. sent in by a medical professional or institution (BRISA Rabago, [facility], urgent care, hospital, or group home...) When possible be specific @ -No Did you speak to anyone other than the patient for history (EMS, parent, family, police, friend...)? What history was obtained from this source @ -daughter Did you review nursing and triage notes (agree or disagree)? Why? @ -I reviewed and agree with nursing and triage notes Were old charts reviewed (outside hosp., previous admission, EMS record, old EKG, old radiological studies, urgent care reports/EKG's, group home records)? Report findings @ -old micro results are reviewed Differential Diagnosis (chest pain, altered mental status, abdominal pain women, abdominal pain men, vaginal bleeding, weakness, fever, dyspnea, syncope, headache, dizziness, GI bleed, back pain, seizure, CVA, palpatations, mental health, musculoskeletal)? @ -uti, head injury, sepsis, hypoglycemia, anemia EKG interpreted by me (3pts min.). @ -Yes and demonstrates sinus rhythm with a rate of 74. AL interval 182. QRS 82. QTC of 431 X-rays interpreted by me (1pt min.). @ -yes, no acute process CT interpreted by me (1pt min.). @ -yes, no acute process U/S interpreted by me (1pt. min.). @ -None done What testing was considered but not performed or refused? (CT, X-rays, U/S, labs)? Why? @ -None What meds were considered but not given or refused? Why? @ -None Did you discuss the management of the patient with other professionals (professionals i.e. BRISA Rabago, [employer], lab, RT, psych nurse, psychiatric social worker, sheet manager, teacher, head correction officer, lead case manager)? Give summary @ -dr barron Was smoking cessation discussed for >3mins.? @ -No Was critical care preformed (if so, how long)? @ -No Were there social determinants of health that impacted care today? How? (Homelessness, low income, unemployed, alcoholism, drug addiction, transportation, low edu. Level, literacy, decrease access to med. care, shelter, rehab)? @ -No Was there de-escalation of care discussed even if they declined (Discuss DNR or withdrawal of care, Hospice)? DNR status @ -No What co-morbidities impacted this encounter? (DM, HTN, Smoking, COPD, CAD, Cancer, CVA, ARF, Chemo, Hep., AIDS, mental health diagnosis, sleep apnea, morbid obesity)? @ -cva, previous utis Was patient admitted / discharged? Hospital course, mention meds given and route, prescriptions, significant lab abnormalities, going to OR and other pertinent info. @ -Upon arrival patient was placed in room 27. Thorough history and physical exam was performed. Patient is conversational. IV is established laboratory studies are conducted. Patient is straight cathed for urine sample. This does demonstrate infection. Patient was given a dose of Rocephin. Will be admitted for IV antibiotics. She was agreeable to the plan and is awaiting a bed on the floor Undiagnosed new problem with uncertain prognosis? @ -No Drug Therapy requiring intensive monitoring for toxicity (Heparin, Nitro, Insulin, Cardizem)? @ -No Were any procedures done? @ -No Diagnosis/symptom? @ -acute encephalopathy, acute uti Acute, or Chronic, or Acute on Chronic? @ -acute Uncomplicated (without systemic symptoms) or Complicated (systemic symptoms)? @ -complicated Side effects of treatment? @ -No Exacerbation, Progression, or Severe Exacerbation? @ -No Poses a threat to life or bodily function? How? (Chest pain, USA, IA, pneumonia, PE, COPD, DKA, ARF, appy, cholecystitis, CVA, Diverticulitis, Homicidal, Suicidal, threat to staff... and all critical care pts) @ -No - Lab Data Result diagrams: 07/22/23 05:58 07/22/23 05:58 Lab Results 07/20/23 07/20/23 07/20/23 Range/Units 15:25 15:25 15:25 WBC 12.0 H (3.8-10.6) k/uL RBC 4.34 (3.80-5.40) m/uL Hgb 12.7 (11.4-16.0) gm/dL Hct 38.7 (34.0-46.0) % MCV 89.2 (80.0-100.0) fL MCH 29.2 (25.0-35.0) pg MCHC 32.8 (31.0-37.0) g/dL RDW 14.2 (11.5-15.5) % Plt Count 190 (150-450) k/uL MPV 9.0 Neutrophils % 85 % Lymphocytes % 9 % Monocytes % 4 % Eosinophils % 1 % Basophils % 1 % Neutrophils # 10.1 H (1.3-7.7) k/uL Lymphocytes # 1.1 (1.0-4.8) k/uL Monocytes # 0.5 (0-1.0) k/uL Eosinophils # 0.1 (0-0.7) k/uL Basophils # 0.1 (0-0.2) k/uL PT 10.8 (10.0-12.5) sec INR 1.0 (<1.2) APTT 23.9 (22.0-30.0) sec Sodium 146 H (137-145) mmol/L Potassium 3.2 L (3.5-5.1) mmol/L Chloride 110 H (98-107) mmol/L Carbon Dioxide 26 (22-30) mmol/L Anion Gap 10 mmol/L BUN 18 H (7-17) mg/dL Creatinine 0.75 (0.52-1.04) mg/dL Est GFR (CKD-EPI)AfAm >90 (>60 ml/min/1.73 sqM) Est GFR (CKD-EPI)NonAf 80 (>60 ml/min/1.73 sqM) Glucose 101 H (74-99) mg/dL Calcium 9.4 (8.4-10.2) mg/dL Total Bilirubin 0.4 (0.2-1.3) mg/dL AST 29 (14-36) U/L ALT 20 (4-34) U/L Alkaline Phosphatase 82 (38-126) U/L Troponin I (0.000-0.034) ng/mL Total Protein 6.6 (6.3-8.2) g/dL Albumin 3.7 (3.5-5.0) g/dL Urine Color Urine Appearance (Clear) Urine pH (5.0-8.0) Ur Specific Reeds (1.001-1.035) Urine Protein (Negative) Urine Glucose (UA) (Negative) Urine Ketones (Negative) Urine Blood (Negative) Urine Nitrite (Negative) Urine Bilirubin (Negative) Urine Urobilinogen (<2.0) mg/dL Ur Leukocyte Esterase (Negative) Urine RBC (0-5) /hpf Urine WBC (0-5) /hpf Urine Bacteria (None) /hpf Hyaline Casts (0-2) /lpf Urine Mucus (None) /hpf Influenza Type A (PCR) (Not Detectd) Influenza Type B (PCR) (Not Detectd) RSV (PCR) (Not Detectd) SARS-CoV-2 (PCR) (Not Detectd) 07/20/23 07/20/23 07/20/23 Range/Units 15:25 15:25 15:25 WBC (3.8-10.6) k/uL RBC (3.80-5.40) m/uL Hgb (11.4-16.0) gm/dL Hct (34.0-46.0) % MCV (80.0-100.0) fL MCH (25.0-35.0) pg MCHC (31.0-37.0) g/dL RDW (11.5-15.5) % Plt Count (150-450) k/uL MPV Neutrophils % % Lymphocytes % % Monocytes % % Eosinophils % % Basophils % % Neutrophils # (1.3-7.7) k/uL Lymphocytes # (1.0-4.8) k/uL Monocytes # (0-1.0) k/uL Eosinophils # (0-0.7) k/uL Basophils # (0-0.2) k/uL PT (10.0-12.5) sec INR (<1.2) APTT (22.0-30.0) sec Sodium (137-145) mmol/L Potassium (3.5-5.1) mmol/L Chloride (98-107) mmol/L Carbon Dioxide (22-30) mmol/L Anion Gap mmol/L BUN (7-17) mg/dL Creatinine (0.52-1.04) mg/dL Est GFR (CKD-EPI)AfAm (>60 ml/min/1.73 sqM) Est GFR (CKD-EPI)NonAf (>60 ml/min/1.73 sqM) Glucose (74-99) mg/dL Calcium (8.4-10.2) mg/dL Total Bilirubin (0.2-1.3) mg/dL AST (14-36) U/L ALT (4-34) U/L Alkaline Phosphatase (38-126) U/L Troponin I <0.012 (0.000-0.034) ng/mL Total Protein (6.3-8.2) g/dL Albumin (3.5-5.0) g/dL Urine Color Colorless Urine Appearance Cloudy H (Clear) Urine pH 7.5 (5.0-8.0) Ur Specific Reeds 1.010 (1.001-1.035) Urine Protein Negative (Negative) Urine Glucose (UA) Negative (Negative) Urine Ketones Negative (Negative) Urine Blood Negative (Negative) Urine Nitrite Positive H (Negative) Urine Bilirubin Negative (Negative) Urine Urobilinogen <2.0 (<2.0) mg/dL Ur Leukocyte Esterase Moderate H (Negative) Urine RBC 2 (0-5) /hpf Urine WBC 11 H (0-5) /hpf Urine Bacteria Moderate H (None) /hpf Hyaline Casts 1 (0-2) /lpf Urine Mucus Rare H (None) /hpf Influenza Type A (PCR) Not Detected (Not Detectd) Influenza Type B (PCR) Not Detected (Not Detectd) RSV (PCR) Not Detected (Not Detectd) SARS-CoV-2 (PCR) Not Detected (Not Detectd) Disposition Clinical Impression: Acute encephalopathy, UTI (urinary tract infection) Disposition: ADMITTED IP TO THIS [facility] Condition: Stable Is patient prescribed a controlled substance at d/c from ED?: No Time of Disposition: 17:55 Decision to Admit Reason: Admit from EC Decision Date: 07/20/23 Decision Time: 17:55
--- NOTE | 2023-07-20 17:26 | XR ---
EXAMINATION TYPE: XR chest 2V DATE OF EXAM: 07/20/2023 4:58 PM CLINICAL INDICATION:Female, 72 years old with history of altered mental status; [facility] COMPARISON: Chest radiographs from 12/20/2022 TECHNIQUE: XR chest 2V Frontal and lateral views of the chest. FINDINGS: Lungs/Pleura: There is no evidence of pleural effusion, focal consolidation, or pneumothorax. Pulmonary vascularity: Unremarkable. Heart/mediastinum: Cardiomediastinal silhouette is enlarged and stable. Atherosclerotic calcificatio ns are seen in the aorta. Two lead cardiac conduction device overlying the left hemithorax with lead tips projecting over the right ventricle and right atrium. Musculoskeletal: No acute osseous pathology. The left shoulder appears pseudosubluxed similar prior o n 12/20/2022. IMPRESSION: 1. No acute cardiopulmonary disease/process. 2. 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 Correlate with physical exam.
[2023-07-20] MEDS ORDERED: cefTRIAXone IN SWFI 1,000 MG/10 ML SYRINGE IVP STA (17:50)
[2023-07-20] MEDS ORDERED: NALOXONE 0.4 MG/ML 1 ML VIAL IV PRN (17:55)
[2023-07-20] MEDS: SODIUM CHLORIDE 0.9% 1,000 ML IV SCH (18:24)
[2023-07-20] MEDS ORDERED: ONDANSETRON ODT 4 MG TAB PO PRN (20:17)
--- NOTE | 2023-07-20 20:27 | P.HPIM ---
History of Present Illness H&P Date: 07/20/23 Chief Complaint: change in mental status 72-year-old female presents emergency department for altered mental status. Daughter is at bedside and helps provide history. States that her mother has been confused, especially today. She has been weak and barely eating. She was diagnosed with a UTI on Sunday. He was supposed to be getting antibiotics on an outpatient basis as an injection however the primary care has been unable to start this and therefore the patient has gone without any antibiotics. She does have symptoms of urgency and frequency. Admits nausea without vomiting. No chest pain or difficulty breathing. No cough. No falls. Does have a history of stroke with left sided weakness sec to an old stroke. Denies any new weakness. No other alleviating, precipitating or modifying factors Review of Systems Complete review of system performed, pertinent positives per HPI, otherwise negative Past Medical History Past Medical History: Cancer, CVA/TIA, Hearing Disorder / Deafness, Musc uloskeletal Disorder, Thyroid Disorder Additional Past Medical History / Comment(s): fatigues easily. 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 IBS, steroids Feb 2018. Osteoporosis. Skin cancer History of Any Multi-Drug Resistant Organisms: None Reported Past Surgical History: Hysterectomy, Orthopedic Surgery, Pacemaker Additional Past Surgical History / Comment(s): Sinus surg x2, knee procedure, Colonoscopy, EGD Past Anesthesia/Blood Transfusion Reactions: Motion Sickness Additional Past Anesthesia/Blood Transfusion Reaction / Comment(s): no hx blood transfusion, rare motion sickness Type of Cardiac Device: Permanent Pacemaker Device Placement Date:: 2019 Past Psychological History: Anxiety Smoking Status: Former smoker Past Alcohol Use History: None Reported Past Drug Use History: None Reported - Past Family History Mother Family Medical History: No Reported History Medications and Allergies Home Medications Medication Instructions Recorded Confirmed Type Dicyclomine [Bentyl] 10 mg PO QID PRN 04/04/18 07/20/23 History diazePAM [Valium] 5 mg PO Q8H PRN 04/04/18 07/20/23 History Rosuvastatin Calcium [Crestor] 40 mg PO DAILY 05/11/20 07/20/23 History Eszopiclone [Lunesta] 2 mg PO HS 12/20/22 07/20/23 History Famotidine [Pepcid] 20 mg PO BID PRN 12/20/22 07/20/23 History Metoprolol Succinate (ER) [Toprol 25 mg PO DAILY 12/20/22 07/20/23 History XL] Aspirin 81 mg PO DAILY #21 tab 12/22/22 07/20/23 Rx Clopidogrel [Plavix] 75 mg PO DAILY #60 tablet 12/22/22 07/20/23 Rx Apixaban [Eliquis] 5 mg PO BID 07/20/23 07/20/23 History Baclofen 10 mg PO BID 07/20/23 07/20/23 History Cranberry Fruit Extract [Cranberry] 500 mg PO DAILY 07/20/23 07/20/23 History Cystex 2 tab PO TID PRN 07/20/23 07/20/23 History D-Mannose 1 cap PO DAILY 07/20/23 07/20/23 History Hyoscyamine Sulfate [Levsin-Sl] 0.125 mg SL TID PRN 07/20/23 07/20/23 History Levothyroxine Sodium [Synthroid] 75 mcg PO AC-BRKFST 07/20/23 07/20/23 History Multivitamin Fusion Bariactric 1 tab PO DAILY 07/20/23 07/20/23 History Ondansetron Odt [Zofran Odt] 4 mg PO QID PRN 07/20/23 07/20/23 History Pilocarpine HCl [Vuity 1.25%] 1 drop BOTH EYES DAILY 07/20/23 07/20/23 History Allergies Allergy/AdvReac Type Severity Reaction Status Date / Time moxifloxacin [From Avelox] Allergy Anaphylaxis Verified 07/20/23 17:04 Physical Exam Vitals: Vital Signs Temp Pulse Resp BP Pulse Ox 07/20/23 18:30 87 159/78 07/20/23 18:00 86 160/78 95 07/20/23 17:30 84 154/79 95 07/20/23 17:00 154/79 07/20/23 16:00 74 155/84 95 07/20/23 14:09 97.9 F 86 20 163/84 97 Intake and Output 07/20/23 07/20/23 07/20/23 06:59 14:59 22:59 Other: Weight 61.235 kg Constitutional: No acute distress, conversant, pleasant Eyes:Anicteric sclerae, moist conjunctiva, no lid-lag, PERRLA, ENMT: Oropharynx clear, no erythema, exudates Neck: Supple, FROM, no masses, or JVD, No carotid bruits, No thyromegaly Lungs: Clear to auscultation, Clear to percussion, Normal respiratory effort, no accessory muscle use Cardiovascular: Heart regular in rate and rhythm, No murmurs, gallops, or rubs, No peripheral edema Abdominal: Soft, Nontender, no guarding, rebound or rigidity, Normoactive bowel sounds, No hepatomegaly, No splenomegaly, No palpable mass Skin: Normal temperature, tone, texture, turgor, no induration, No subcutaneous nodules, No rash, lesions, No ulcers Extremities: No digital cyanosis, No clubbing, Pedal pulses intact and symmetrical, Radial pulses intact and symmetrical, No calf tenderness Psychiatric: Alert and oriented to person, place but not to date, appropriate affect, intact judgement Neuro: Muscles Strength 5/5 in all 4 extremities, Sensation to light touch grossly present throughout, Cranial nerves II-XII grossly intact, no focal sensory deficits Results CBC & Chem 7: 07/20/23 15:25 07/20/23 15:25 Labs: Abnormal Lab Results - Last 24 Hours (Table) 07/20/23 07/20/23 07/20/23 Range/Units 15:25 15:25 15:25 WBC 12.0 H (3.8-10.6) k/uL Neutrophils # 10.1 H (1.3-7.7) k/uL Sodium 146 H (137-145) mmol/L Potassium 3.2 L (3.5-5.1) mmol/L Chloride 110 H (98-107) mmol/L BUN 18 H (7-17) mg/dL Glucose 101 H (74-99) mg/dL Urine Appearance Cloudy H (Clear) Urine Nitrite Positive H (Negative) Ur Leukocyte Esterase Moderate H (Negative) Urine WBC 11 H (0-5) /hpf Urine Bacteria Moderate H (None) /hpf Urine Mucus Rare H (None) /hpf Assessment and Plan Plan: Acute encephalopathy Likely secondary to urinary tract infection Send urine cultures and blood cultures Treatment ceftriaxone 1 g IV daily Monitor mental status, currently better. Chronic History of atrial fibrillation, bradycardia status post pacemaker placement Stroke with left-sided weakness Hypothyroid, IBS, Osteoporosis All stable Resume meds Admit to inpatient, expected length of stay more than 2 midnights
[2023-07-20] MEDS: diazePAM 5 MG TAB PO PRN (21:28)
[2023-07-20] MEDS: TEMAZEPAM 15 MG CAP PO SCH (21:28)
[2023-07-20] MEDS: APIXABAN 5 MG TAB PO SCH (21:28)
[2023-07-20] MEDS: BACLOFEN 10 MG TAB PO SCH (21:28)
[2023-07-21] MEDS: ACETAMINOPHEN TAB 325 MG TAB PO PRN ×2 (06:07→11:56)
[2023-07-21] MEDS: LEVOTHYROXINE 75 MCG TAB PO SCH (06:07)
[2023-07-21] MEDS: METOPROLOL SUCCINATE (ER) 25 MG TAB.ER.24H PO SCH (09:01)
[2023-07-21] MEDS: CLOPIDOGREL 75 MG TAB PO SCH (09:01)
[2023-07-21] MEDS: APIXABAN 5 MG TAB PO SCH ×2 (09:01→21:03)
[2023-07-21] MEDS: BACLOFEN 10 MG TAB PO SCH ×2 (09:01→21:03)
[2023-07-21] MEDS: ATORVASTATIN 80 MG TAB PO SCH (09:01)
[2023-07-21 09:22] LABS: Basophils # (A) 0.05 X 10*3/uL (0.00-0.10); Basophils % (A) 0.5 %; Eosinophils # (A) 0.03 X 10*3/uL (0.04-0.35); Eosinophils % (A) 0.3 %; HCT 34.3 % (37.2-46.3); HGB 10.8 g/dL (12.0-15.0); Lymphocytes # (A) 1.48 X 10*3/uL (0.90-5.00); Lymphocytes % (A) 14.1 %; MCH 28.2 pg (27.0-32.0); MCHC 31.5 g/dL (32.0-37.0); MCV 89.6 FL (80.0-97.0); Mean Platelet Volume 11.2 FL (9.5-12.2); Monocytes # (A) 0.75 X 10*3/uL (0.20-1.00); Monocytes % (A) 7.1 %; NRBC Per 100 WBC 0 X 10*3/uL (0.00-0.01); Neutrophils # (A) 8.16 X 10*3/uL (1.80-7.70); Neutrophils % (A) 77.6 %; Platelet Count 181 X 10*3/uL (140-440); RBC 3.83 X 10*6/uL (4.10-5.20); RDW 14.6 % (11.5-14.5); WBC 10.51 X 10*3/uL (4.50-10.00)
[2023-07-21 09:41] LABS: BUN/Creat Ratio 21.43 Ratio (12.00-20.00); Calcium 8.8 mg/dL (8.7-10.3); Carbon Dioxide 23.7 mmol/L (21.6-31.8); Chloride 111 mmol/L (96-109); Glucose 112 mg/dL (70-110); Sodium 145 mmol/L (135-145)
[2023-07-21] MEDS: PILOCARPINE 1% OPHTH DROPS 15 ML BTL BOTH EYES SCH (11:37)
[2023-07-21] MEDS: SODIUM CHLORIDE 0.9% 1,000 ML IV SCH ×2 (11:56→21:05)
[2023-07-21] MEDS ORDERED: POTASSIUM CHLORIDE ER 20 MEQ TAB.ER PO STA (15:30)
--- NOTE | 2023-07-21 15:39 | P.PN ---
Subjective Progress Note Date: 07/21/23 72-year-old female with PMH of CVA and left sided weakness, hypothryoidism, hypertension presents to the ED for weakness and confusion. In the ED she underwent extensive evaluation. Vital signs stable. CBC WBC 12. INR 1. CMP Na 146, K 3.2, Cl 110, BUN 18, glu 101. Troponin < 0.012. Lactic acid 0.9. UA positive nitrite and moderate LE. COVID, Flu, RSV negative. Patient is admitted for sepsis related to UTI. 07/21 Patient was seen and examined. She reports improvement in her symptoms. Reports urinary urgency. Currently on Rocephin 1g IV QD. CBC WBC 10.51, Hg 10.8. BMP K 3, Cl 111, glu 112. General: non toxic, no distress, appears at stated age Derm: warm, dry Head: atraumatic, normocephalic, symmetric Eyes: EOMI, no lid lag, anicteric sclera Cardiovascular: S1S2 reg, no murmur Lungs: CTA bilateral, no rhonchi, no rales , no accessory muscle use Ext: no gross muscle atrophy, no edema, no contractures Neuro: Chronic L sided deficits Psych: Alert, oriented, appropriate affect Based on my assessment of this patient, this patient meets a high complexity level of care. Patient has an acute diagnosis of sepsis due to UTI that poses a threat to life or bodily function. Acute metabolic encephalopathy: Related to below. Fall precautions. PT and OT consult. Sepsis related to UTI: Rocephin 1g IV QD. UCx. BCx. Telemetry monitoring. NS at 75 cc/hr. Hypokalemia: KCl 40 meq IV and PO. Normocytic anemia: Transfuse if Hg < 7 Resolved: HyperNa Chronic conditions: CVA and left sided weakness, hypothryoidism, hypertension CODE STATUS: FULL CODE. DVT Prophylaxis: Lovenox SQ GI Prophylaxis: Protonix Designated medical POA if patient is not able to make medical decisions for themselves: I have reviewed the following weight loss consultant notes: I have reviewed the results of the following tests: CBC, BMP I have ordered the following tests: CBC, BMP, Mag I have discussed the care of this patient with the following independent historian: I have independently interpreted the following test below: I have discussed the management of this patient with the following physician: Objective - Vital Signs Vital signs: Vital Signs Temp 98.0 F 07/21/23 14:00 Pulse 78 07/21/23 14:00 Resp 14 07/21/23 14:00 BP 108/65 07/21/23 14:00 Pulse Ox 95 07/21/23 14:00 FiO2 Intake & Output 07/20/23 07/21/23 07/21/23 18:59 06:59 18:59 Weight 61.235 kg 61.235 kg Other: Voiding Method Bedside Commode - Labs CBC & Chem 7: 07/21/23 05:10 07/21/23 05:10 Labs: Abnormal Lab Results - Last 24 Hours (Table) 07/20/23 07/20/23 07/20/23 Range/Units 15:25 15:25 15:25 WBC 12.0 H (3.8-10.6) k/uL RBC (4.10-5.20) X 10*6/uL Hgb (12.0-15.0) g/dL Hct (37.2-46.3) % MCHC (32.0-37.0) g/dL RDW (11.5-14.5) % Neutrophils # 10.1 H (1.3-7.7) k/uL Eosinophils # (0.04-0.35) X 10*3/uL Sodium 146 H (137-145) mmol/L Potassium 3.2 L (3.5-5.1) mmol/L Chloride 110 H (98-107) mmol/L BUN 18 H (7-17) mg/dL BUN/Creatinine Ratio (12.00-20.00) Ratio Glucose 101 H (74-99) mg/dL Urine Appearance Cloudy H (Clear) Urine Nitrite Positive H (Negative) Ur Leukocyte Esterase Moderate H (Negative) Urine WBC 11 H (0-5) /hpf Urine Bacteria Moderate H (None) /hpf Urine Mucus Rare H (None) /hpf 07/21/23 07/21/23 Range/Units 05:10 05:10 WBC 10.51 H (3.8-10.6) k/uL RBC 3.83 L (4.10-5.20) X 10*6/uL Hgb 10.8 L (12.0-15.0) g/dL Hct 34.3 L (37.2-46.3) % MCHC 31.5 L (32.0-37.0) g/dL RDW 14.6 H (11.5-14.5) % Neutrophils # 8.16 H (1.3-7.7) k/uL Eosinophils # 0.03 L (0.04-0.35) X 10*3/uL Sodium (137-145) mmol/L Potassium 3.0 L (3.5-5.1) mmol/L Chloride 111 H (98-107) mmol/L BUN (7-17) mg/dL BUN/Creatinine Ratio 21.43 H (12.00-20.00) Ratio Glucose 112 H (74-99) mg/dL Urine Appearance (Clear) Urine Nitrite (Negative) Ur Leukocyte Esterase (Negative) Urine WBC (0-5) /hpf Urine Bacteria (None) /hpf Urine Mucus (None) /hpf
[2023-07-21] MEDS: POTASSIUM CHLORIDE 10 MEQ in WATER FOR INJECTION 1 100ML.BAG IVPB SCH ×4 (15:46→22:33)
[2023-07-21] MEDS: FAMOTIDINE 20 MG TAB PO PRN (18:36)
[2023-07-21] MEDS: diazePAM 5 MG TAB PO PRN (21:03)
[2023-07-21] MEDS: TEMAZEPAM 15 MG CAP PO SCH (21:03)
[2023-07-21 23:50] VITALS: RESP 16
[2023-07-22] MEDS: LEVOTHYROXINE 75 MCG TAB PO SCH (06:15)
[2023-07-22] MEDS ORDERED: ENOXAPARIN 40 MG/0.4 ML SYRINGE SQ SCH (09:00)
[2023-07-22] MEDS: CLOPIDOGREL 75 MG TAB PO SCH (09:41)
[2023-07-22] MEDS: APIXABAN 5 MG TAB PO SCH ×2 (09:41→20:30)
[2023-07-22] MEDS: FAMOTIDINE 20 MG TAB PO PRN (09:41)
[2023-07-22] MEDS: METOPROLOL SUCCINATE (ER) 25 MG TAB.ER.24H PO SCH (09:42)
[2023-07-22] MEDS: PILOCARPINE 1% OPHTH DROPS 15 ML BTL BOTH EYES SCH (09:42)
[2023-07-22] MEDS: ATORVASTATIN 80 MG TAB PO SCH (09:42)
[2023-07-22] MEDS: BACLOFEN 10 MG TAB PO SCH ×2 (09:42→20:30)
[2023-07-22] MEDS: SODIUM CHLORIDE 0.9% 1,000 ML IV SCH (09:43)
[2023-07-22 10:01] LABS: Basophils # (A) 0.05 X 10*3/uL (0.00-0.10); Basophils % (A) 0.8 %; Eosinophils # (A) 0.05 X 10*3/uL (0.04-0.35); Eosinophils % (A) 0.8 %; HCT 33.2 % (37.2-46.3); HGB 10.5 g/dL (12.0-15.0); Lymphocytes # (A) 1.59 X 10*3/uL (0.90-5.00); MCH 28.2 pg (27.0-32.0); MCHC 31.6 g/dL (32.0-37.0); Mean Platelet Volume 10.8 FL (9.5-12.2); Monocytes # (A) 0.39 X 10*3/uL (0.20-1.00); Monocytes % (A) 6.1 %; NRBC Per 100 WBC 0 X 10*3/uL (0.00-0.01); Neutrophils # (A) 4.27 X 10*3/uL (1.80-7.70); Platelet Count 172 X 10*3/uL (140-440); RBC 3.73 X 10*6/uL (4.10-5.20); RDW 14.5 % (11.5-14.5); WBC 6.37 X 10*3/uL (4.50-10.00)
[2023-07-22 10:14] LABS: Blood Urea Nitrogen 12.3 mg/dL (9.0-27.0); Chloride 114 mmol/L (96-109); Glucose 103 mg/dL (70-110); Sodium 144 mmol/L (135-145)
[2023-07-22 10:15] LABS: Calcium 8.8 mg/dL (8.7-10.3); Carbon Dioxide 20.4 mmol/L (21.6-31.8)
--- NOTE | 2023-07-22 12:10 | P.PN ---
Subjective Progress Note Date: 07/22/23 72-year-old female with PMH of CVA and left sided weakness, hypothryoidism, hypertension presents to the ED for weakness and confusion. In the ED she underwent extensive evaluation. Vital signs stable. CBC WBC 12. INR 1. CMP Na 146, K 3.2, Cl 110, BUN 18, glu 101. Troponin < 0.012. Lactic acid 0.9. UA positive nitrite and moderate LE. COVID, Flu, RSV negative. Patient is admitted for sepsis related to UTI. 07/21 Patient was seen and examined. She reports improvement in her symptoms. Reports urinary urgency. Currently on Rocephin 1g IV QD. CBC WBC 10.51, Hg 10.8. BMP K 3, Cl 111, glu 112. 07/22 Patient was seen and examined. Mentation improved back to baseline per family. UCx gram negative bacilli. Maintained on Rocephin. CBC Hg 10.5. BMP Cl 114, bicarb 20.4. Discussed with and daughter at bedside. General: non toxic, no distress, appears at stated age Derm: warm, dry Head: atraumatic, normocephalic, symmetric Eyes: EOMI, no lid lag, anicteric sclera Cardiovascular: S1S2 reg, no murmur Lungs: CTA bilateral, no rhonchi, no rales , no accessory muscle use Ext: no gross muscle atrophy, no edema, no contractures Neuro: Chronic L sided deficits Psych: Alert, oriented, appropriate affect Based on my assessment of this patient, this patient meets a moderate complexity level of care. Patient has an acute diagnosis of sepsis due to UTI that poses a threat to life or bodily function. Acute metabolic encephalopathy: Related to below. Fall precautions. PT and OT consult. Sepsis related to UTI: Rocephin 1g IV QD. UCx. BCx. Telemetry monitoring. NS at 75 cc/hr. Hypokalemia: KCl 40 meq IV and PO. Normocytic anemia: Transfuse if Hg < 7 Resolved: HyperNa Chronic conditions: CVA and left sided weakness, hypothryoidism, hypertension CODE STATUS: FULL CODE. DVT Prophylaxis: Lovenox SQ GI Prophylaxis: Protonix Designated medical POA if patient is not able to make medical decisions for themselves: I have reviewed the following family consultant notes: I have reviewed the results of the following tests: CBC, BMP, UCx I have ordered the following tests: I have discussed the care of this patient with the following independent historian: and daughter at bedside. I have independently interpreted the following test below: I have discussed the management of this patient with the following physician: Objective - Vital Signs Vital signs: Vital Signs Temp 98.7 F 07/22/23 00:42 Pulse 81 07/22/23 00:42 Resp 16 07/22/23 00:42 BP 132/74 07/22/23 00:42 Pulse Ox 98 07/22/23 00:42 FiO2 Intake & Output 07/21/23 07/22/23 07/22/23 18:59 06:59 18:59 Other: Voiding Method Bedside Commode Bedside Commode # Voids 3 - Labs CBC & Chem 7: 07/22/23 05:58 07/22/23 05:58 Labs: Abnormal Lab Results - Last 24 Hours (Table) 07/21/23 Range/Units 05:10 Potassium 3.0 L (3.5-5.5) mmol/L Chloride 111 H (96-109) mmol/L BUN/Creatinine Ratio 21.43 H (12.00-20.00) Ratio Glucose 112 H (70-110) mg/dL Microbiology - Last 24 Hours (Table) 07/20/23 15:25 Blood Culture - Preliminary Blood 07/20/23 15:10 Blood Culture - Preliminary Blood 07/20/23 15:25 Urine Culture - Preliminary Urine,Catheterized Gram Neg Bacilli
[2023-07-22] MEDS: TEMAZEPAM 15 MG CAP PO SCH (20:30)
[2023-07-22] MEDS: diazePAM 5 MG TAB PO PRN (20:30)
[2023-07-23] MEDS: ACETAMINOPHEN TAB 325 MG TAB PO PRN (00:31)
[2023-07-23] MEDS: SODIUM CHLORIDE 0.9% 1,000 ML IV SCH ×2 (06:12→08:35)
[2023-07-23] MEDS: LEVOTHYROXINE 75 MCG TAB PO SCH (06:12)
[2023-07-23] MEDS: BACLOFEN 10 MG TAB PO SCH (08:27)
[2023-07-23] MEDS: ATORVASTATIN 80 MG TAB PO SCH (08:27)
[2023-07-23] MEDS: APIXABAN 5 MG TAB PO SCH (08:27)
[2023-07-23] MEDS: METOPROLOL SUCCINATE (ER) 25 MG TAB.ER.24H PO SCH (08:28)
[2023-07-23] MEDS: CLOPIDOGREL 75 MG TAB PO SCH (08:28)
[2023-07-23] MEDS: PILOCARPINE 1% OPHTH DROPS 15 ML BTL BOTH EYES SCH (08:28)
[2023-07-23] MEDS ORDERED: LEVOFLOXACIN 250MG-D5W PMX 250 MG in DEXTROSE/WATER 1 50ML.BAG IVPB SCH (09:00)
[2023-07-23 09:09] VITALS: BP 152/73; PULSE 81; TEMP 97.9
[2023-07-23] MEDS ORDERED: GENTAMICIN 60 MG in SODIUM CHLORIDE 0.9% 100 ML IVPB SCH (10:00)
[2023-07-23] MEDS ORDERED: GENTAMICIN PER PHARMACY MISCELLANE PRN (10:03)
[2023-07-23] MEDS ORDERED: ERTAPENEM 1 GM in SODIUM CHLORIDE 0.9% 50 ML IVPB SCH (11:00)
[2023-07-23 11:01] LABS: Appearance,Urine Clear (Clear); Bilirubin,Urine Negative (Negative); Blood,Urine Negative (Negative); Color,Urine Colorless; Glucose,Urine (UA) Negative (Negative); Hyaline Casts,Urine 1 /lpf (0-2); Ketones,Urine Negative (Negative); Leukocyte Esterase,Urine Trace (Negative); Mucus,Urine Rare /hpf; Nitrite,Urine Negative (Negative); Protein,Urine Negative (Negative); RBC,Urine 1 /hpf (0-5); Squamous Epithelial Cell,Urine <1 /hpf (0-4); Urobilinogen,Urine <2.0 mg/dL (<2.0); WBC,Urine 4 /hpf (0-5)
--- NOTE | 2023-07-23 14:50 | P.DS ---
Providers Date of admission: 07/20/23 17:55 Expected date of discharge: 07/23/23 Attending physician: Marcie Moya DO Consults: 07/23/23 09:58 Consult Physician Routine Consulting Provider: Alcon Moon Consult Reason/Comments: ESBL UTI Do you want consulting provider notified?: Yes Primary care physician: Flora Veloz MD Hospital Course: 72-year-old female with PMH of CVA and left sided weakness, hypothryoidism, hypertension presents to the ED for weakness and confusion. In the ED she underwent extensive evaluation. Vital signs stable. CBC WBC 12. INR 1. CMP Na 146, K 3.2, Cl 110, BUN 18, glu 101. Troponin < 0.012. Lactic acid 0.9. UA positive nitrite and moderate LE. COVID, Flu, RSV negative. Patient is admitted for sepsis related to UTI. 07/21 Patient was seen and examined. She reports improvement in her symptoms. Reports urinary urgency. Currently on Rocephin 1g IV QD. CBC WBC 10.51, Hg 10.8. BMP K 3, Cl 111, glu 112. 07/22 Patient was seen and examined. Mentation improved back to baseline per family. UCx gram negative bacilli. Maintained on Rocephin. CBC Hg 10.5. BMP Cl 114, bicarb 20.4. Discussed with and daughter at bedside. 07/23 Patient was seen and examined. No complaints today. UCx Klebsiella pneumonia ESBL. Repeat UA shows trace LE. Case was discussed with LIDYA Strange with one dose of Invanz and continue Levaquin 250 mg PO QD x 5 days. General: non toxic, no distress, appears at stated age Derm: warm, dry Head: atraumatic, normocephalic, symmetric Eyes: EOMI, no lid lag, anicteric sclera Cardiovascular: S1S2 reg, no murmur Lungs: CTA bilateral, no rhonchi, no rales , no accessory muscle use Ext: no gross muscle atrophy, no edema, no contractures Neuro: Chronic L sided deficits Psych: Alert, oriented, appropriate affect Discharge Diagnosis: Acute metabolic encephalopathy Sepsis related to UTI Normocytic anemia Resolved: HyperNa, HypoK Chronic conditions: CVA and left sided weakness, hypothryoidism, hypertension Patient Condition at Discharge: Stable Plan - Discharge Summary New Discharge Prescriptions: New Levofloxacin [Levaquin] 250 mg PO DAILY 5 Days #5 tablet Continue diazePAM [Valium] 5 mg PO Q8H PRN PRN Reason: Anxiety Dicyclomine [Bentyl] 10 mg PO QID PRN PRN Reason: IBS Rosuvastatin Calcium [Crestor] 40 mg PO DAILY Metoprolol Succinate (ER) [Toprol XL] 25 mg PO DAILY Famotidine [Pepcid] 20 mg PO BID PRN PRN Reason: hiatal hernia/acid reflux Aspirin 81 mg PO DAILY #21 tab Clopidogrel [Plavix] 75 mg PO DAILY #60 tablet Ondansetron Odt [Zofran ODT] 4 mg PO QID PRN PRN Reason: Nausea Hyoscyamine Sulfate [Levsin-Sl] 0.125 mg SL TID PRN PRN Reason: Gi Upset Baclofen 10 mg PO BID Cranberry Fruit Extract [Cranberry] 500 mg PO DAILY Cystex 2 tab PO TID PRN PRN Reason: UTI Multivitamin Fusion Bariactric 1 tab PO DAILY Eszopiclone [Lunesta] 2 mg PO HS Apixaban [Eliquis] 5 mg PO BID Levothyroxine Sodium [Synthroid] 75 mcg PO AC-BRKFST Pilocarpine HCl [Vuity 1.25%] 1 drop BOTH EYES DAILY D-Mannose 1 cap PO DAILY Discharge Medication List Dicyclomine [Bentyl] 10 mg PO QID PRN 04/04/18 [History] diazePAM [Valium] 5 mg PO Q8H PRN 04/04/18 [History] Rosuvastatin Calcium [Crestor] 40 mg PO DAILY 05/11/20 [History] Eszopiclone [Lunesta] 2 mg PO HS 12/20/22 [History] Famotidine [Pepcid] 20 mg PO BID PRN 12/20/22 [History] Metoprolol Succinate (ER) [Toprol XL] 25 mg PO DAILY 12/20/22 [History] Aspirin 81 mg PO DAILY #21 tab 12/22/22 [Rx] Clopidogrel [Plavix] 75 mg PO DAILY #60 tablet 12/22/22 [Rx] Apixaban [Eliquis] 5 mg PO BID 07/20/23 [History] Baclofen 10 mg PO BID 07/20/23 [History] Cranberry Fruit Extract [Cranberry] 500 mg PO DAILY 07/20/23 [History] Cystex 2 tab PO TID PRN 07/20/23 [History] D-Mannose 1 cap PO DAILY 07/20/23 [History] Hyoscyamine Sulfate [Levsin-Sl] 0.125 mg SL TID PRN 07/20/23 [History] Levothyroxine Sodium [Synthroid] 75 mcg PO AC-BRKFST 07/20/23 [History] Multivitamin Fusion Bariactric 1 tab PO DAILY 07/20/23 [History] Ondansetron Odt [Zofran ODT] 4 mg PO QID PRN 07/20/23 [History] Pilocarpine HCl [Vuity 1.25%] 1 drop BOTH EYES DAILY 07/20/23 [History] Levofloxacin [Levaquin] 250 mg PO DAILY 5 Days #5 tablet 07/23/23 [Rx] Follow up Appointment(s)/Referral(s): Flora Veloz MD [Primary Care Provider] - 1-2 days Discharge Disposition: HOME SELF-CARE
--- NOTE | 2023-07-30 12:33 | P.CONS ---
History of Present Illness - Reason for Consult Consult date: 07/23/23 ESBL urinary tract infection Requesting physician: Johnson Abbott - Chief Complaint Dysuria and frequency x few days - History of Present Illness Patient is a 72-year female with a past medical history significant for CVA TIA thyroid disorder presenting to the hospital 3 days ago for evaluation of mental status changes. The patient was noticed to be confused the day of presentation the hospital the patient be very weak and barely eating patient was also complaining of dysuria and frequency but no suprapubic or flank pain patient denies having any high-grade fever or any chills and no fever has been called to this hospital stay denies any chest pain shortness of breath or cough and no diarrhea on presentation the hospital patient was afebrile and no fever have recorded subsequently patient was not tachycardic hypotensive or hypoxic patient did have a white count of 12,000 creatinine 0.75 did have positive UA treated with the Rocephin, urine culture subsequently came back positive with ESBL Klebsiella patient was started on gentamicin infectious dis ease was consulted for further management of antibiotic therapy Review of Systems Positive point and negatives has been mentioned in the HPI, complete review of systems was performed and all other systems are negative Past Medical History Past Medical History: Cancer, CVA/TIA, Hearing Disorder / Deafness, Musculoskeletal Disorder, Thyroid Disorder Additional Past Medical History / Comment(s): fatigues easily. CVA-Aug 2017 paralysis lt side - able to walk w/ left leg brace, uses cane, has Lt shoulder s ubluxation, hx uncontrollable laughter and cying (PBA). IBS, steroids Feb 2018. Osteoporosis. Skin cancer History of Any Multi-Drug Resistant Organisms: None Reported Past Surgical History: Hysterectomy, Orthopedic Surgery, Pacemaker Additional Past Surgical History / Comment(s): Sinus surg x2, knee procedure, Colonoscopy, EGD Past Anesthesia/Blood Transfusion Reactions: Motion Sickness Additional Past Anesthesia/Blood Transfusion Reaction / Comm: no hx blood transfusion, rare motion sickness Type of Cardiac Device: Permanent Pacemaker Device Placement Date:: 2019 Past Psychological History: Anxiety Smoking Status: Former smoker Past Alcohol Use History: None Reported Past Drug Use History: None Reported - Past Family History Mother Family Medical History: No Reported History Medications and Allergies Home Medications Medication Instructions Recorded Confirmed Type Dicyclomine [Bentyl] 10 mg PO QID PRN 04/04/18 07/20/23 History diazePAM [Valium] 5 mg PO Q8H PRN 04/04/18 07/20/23 History Rosuvastatin Calcium [Crestor] 40 mg PO DAILY 05/11/20 07/20/23 History Eszopiclone [Lunesta] 2 mg PO HS 12/20/22 07/20/23 History Famotidine [Pepcid] 20 mg PO BID PRN 12/20/22 07/20/23 History Metoprolol Succinate (ER) [Toprol 25 mg PO DAILY 12/20/22 07/20/23 History XL] Aspirin 81 mg PO DAILY #21 tab 12/22/22 07/20/23 Rx Clopidogrel [Plavix] 75 mg PO DAILY #60 tablet 12/22/22 07/20/23 Rx Apixaban [Eliquis] 5 mg PO BID 07/20/23 07/20/23 History Baclofen 10 mg PO BID 07/20/23 07/20/23 History Cranberry Fruit Extract [Cranberry] 500 mg PO DAILY 07/20/23 07/20/23 History Cystex 2 tab PO TID PRN 07/20/23 07/20/23 History D-Mannose 1 cap PO DAILY 07/20/23 07/20/23 History Hyoscyamine Sulfate [Levsin-Sl] 0.125 mg SL TID PRN 07/20/23 07/20/23 History Levothyroxine Sodium [Synthroid] 75 mcg PO AC-BRKFST 07/20/23 07/20/23 History Multivitamin Fusion Bariactric 1 tab PO DAILY 07/20/23 07/20/23 History Ondansetron Odt [Zofran ODT] 4 mg PO QID PRN 07/20/23 07/20/23 History Pilocarpine HCl [Vuity 1.25%] 1 drop BOTH EYES DAILY 07/20/23 07/20/23 History Levofloxacin [Levaquin] 250 mg PO DAILY 5 Days #5 tablet 07/23/23 Rx Allergies Allergy/AdvReac Type Severity Reaction Status Date / Time moxifloxacin [From Avelox] Allergy Anaphylaxis Verified 07/20/23 17:04 Physical Exam Vitals: Vital Signs Temp Pulse Resp BP Pulse Ox 07/23/23 08:00 97.9 F 81 16 152/73 95 07/23/23 00:28 98.3 F 79 16 134/74 96 07/22/23 20:00 98.3 F 85 16 137/76 96 07/22/23 14:00 97.9 F 84 16 126/77 95 Intake and Output 07/22/23 07/23/23 07/23/23 22:59 06:59 14:59 Intake Total 480 59 Balance 480 59 Intake: Oral 480 59 Other: Voiding Method Toilet Bedside Commode # Voids 1 2 GENERAL DESCRIPTION: Elderly female lying in bed, no distress. No tachypnea or accessory muscle of respiration use. HEENT: Shows Pallor , no scleral icterus. Oral mucous membrane is dry. No pharyngeal erythema or thrush NECK: Trachea central, no thyromegaly. LUNGS: Unlabored breathing. Clear to auscultation anteriorly. No wheeze or crackle. HEART: S1, S2, regular rate and rhythm. No loud murmur ABDOMEN: Soft, no tenderness , guarding or rigidity, no organomegaly EXTREMITIES: No edema of feet. SKIN: No rash, no masses palpable. NEUROLOGICAL: The patient is awake, alert, oriented x3, mood and affect normal. Results CBC & Chem 7: 07/22/23 05:58 07/22/23 05:58 Labs: Abnormal Lab Results - Last 24 Hours (Table) 07/22/23 Range/Units 05:58 Chloride 114 H (96-109) mmol/L Carbon Dioxide 20.4 L (21.6-31.8) mmol/L BUN/Creatinine Ratio 20.50 H (12.00-20.00) Ratio Microbiology - Last 24 Hours (Table) 07/20/23 15:25 Blood Culture - Preliminary Blood 07/20/23 15:10 Blood Culture - Preliminary Blood 07/20/23 15:25 Urine Culture - Final Urine,Catheterized Klebsiella pneumoniae Assessment and Plan (1) UTI (urinary tract infection) Status: Acute Code(s): N39.0 - URINARY TRACT INFECTION, SITE NOT SPECIFIED SNOMED Code(s): 02346783 Plan: 1patient presented to hospital 3 days ago for evaluation of dysuria frequency and also have mental status changes did have elevated white count and a positive UA concerning for symptomatic UTI patient has shown clinical improvement and white count has normalized however urine is growing ESBL Klebsiella with a question of possible contamination 2we will discontinue gentamicin to decrease risk of nephrotoxicity 3we will repeat a UA , if repeat urine is clear we will consider short course of oral Ceftin in the meantime start the patient on Invanz if the repeat UA significantly positive may need to arrange for outpatient IV Invanz this has been discussed with the admitting team working on discharge at the bedside multiple questions were answered We will follow on clinical condition and cultures to further adjust medication if needed Thank you for this consultation we will follow the patient along with you Dictation was produced using [employer] dictation software. please excuse any gramma tical, word or spelling errors. Time with Patient: Greater than 30
== END 2023-07-23 16:05 | disposition home or self-care (01) | DRG 871 ==
LOC: EC 14:01 → 4SSUR 17:55 → 6NMEDSUR 07-21 04:56
PROVIDERS: ADMIT Internal Medicine; ATTEND Internal Medicine
DX: A41.59 Other Gram-negative sepsis (principal); G93.41 Metabolic encephalopathy; N39.0 Urinary tract infection, site not specified; I69.354 Hemiplegia and hemiparesis following cerebral infarction affecting left non-dominant side; E87.0 Hyperosmolality and hypernatremia; Z16.12 Extended spectrum beta lactamase (ESBL) resistance; D64.9 Anemia, unspecified; E03.9 Hypothyroidism, unspecified; Z11.52 Encounter for screening for COVID-19; Z79.890 Hormone replacement therapy; E87.6 Hypokalemia; F41.9 Anxiety disorder, unspecified; H91.90 Unspecified hearing loss, unspecified ear; I10 Essential (primary) hypertension; K58.9 Irritable bowel syndrome, unspecified; M81.0 Age-related osteoporosis without current pathological fracture; I25.10 Atherosclerotic heart disease of native coronary artery without angina pectoris; I48.91 Unspecified atrial fibrillation; Z95.0 Presence of cardiac pacemaker; Z79.01 Long term (current) use of anticoagulants; Z79.02 Long term (current) use of antithrombotics/antiplatelets; Z79.82 Long term (current) use of aspirin; Z79.899 Other long term (current) drug therapy; Z85.828 Personal history of other malignant neoplasm of skin; Z87.891 Personal history of nicotine dependence; Z90.710 Acquired absence of both cervix and uterus
CPT/HCPCS: 36415; 70450; 71046; 80048; 80053; 81001; 83605; 83735; 84484; 85025; 85610; 85730; 87040; 87077; 87086; 87186; 87636; 93005; 96361; 96374; 99285